=== PATIENT | male | born 1935 | race Caucasian/White ===

== ENCOUNTER 2017-03-08 11:12 | Emergency (ER) | payer MEDICARE, OTHER ==
[~2017-03-08] VITALS: Ht 177.8 cm; Wt 114.3 kg
--- NOTE | 2017-03-08 11:43 | PHYS DOC ---
General Chief Complaint: ABDOMINAL PAIN Stated Complaint: ABD PAIN Time Seen by MD: 11:13 Source: patient Exam Limitations: no limitations Problems: History of Present Illness Initial Comments Patient is a 81-year-old male who comes to the ED complaining of abdominal pain and dark stools. Patient states he presented to [facility] emergency department last week for the same symptoms. He says that they were so distracted trying to rule out a cardiac cause for his symptoms that they ignored his abdominal pain complaints. He says during his inpatient admission he was transferred "downtown" for "special x-rays of my heart." He says that while he was lying on his back with his arms up over his head during the procedure he began to vomit and had to stop and restart the next day. Ultimately they ruled out any cardiac cause and he says he was discharged home without any evaluation for his abdominal pain complaints. He began taking mag citrate and Colace earlier this week, he has finished but states he took for 3 days and had diarrhea. Initially he says his stools were "yellow, like a babies" but the past 2 days he says they have been black. He complains of intermittent abdominal pains she points to just above his umbilicus. He denies any nausea or vomiting he has been eating and drinking like normal and denies fever chills sweats or myalgias. He has extensive cardiac history but persistently denies any chest pain difficulty breathing arm or neck symptoms diaphoresis dizziness. He denies any recent antibiotic use and his symptoms are described as moderate. He tried to follow-up with Dr. Fowler today but was told he was out of the office after discussing his chief complaint he was directed to the emergency department. With this he hasn' t have any new activity intolerances or dyspnea on exertion no other symptoms. Patient takes [facility] staff has requested records from [facility] Timing/Duration: 1 week Severity: moderate Modifying Factors: worse with eating Associated Symptoms: other Allergies: Coded Allergies: Tetracyclines (Verified Allergy, Intermediate, 09/10/15) atorvastatin (Verified Allergy, Intermediate, 09/10/15) diphenhydramine (Verified Allergy, Intermediate, 09/10/15) erythromycin base (Verified Allergy, Intermediate, 09/10/15) ether (Verified Allergy, Intermediate, 09/10/15) Past Medical History Medical History: other (CHF, hypertension, coronary artery disease, atrial fibrillation, hyperlipidemia, COPD, gout, morbid obesity, diabetes, diabetic neuropathy, GERD, sleep apnea, chronic kidney disease stage III) Surgical History: other (CABG, coronary stent, rotator cuff, appendectomy, cholecystectomy, herniorrhaphy, anal sphincter repair, thyroid, cataract) Social History Smoker: quit greater than 1 year Alcohol: none Drugs: none Review of Systems Constitutional: denies chills, denies diaphoresis, denies fever, denies malaise Respiratory: denies cough, denies shortness of breath, denies wheezing Cardiovascular: denies chest pain, denies edema, denies palpitations, denies syncope Gastrointestinal: see HPI Genitourinary: denies dysuria, denies frequency, denies hematuria Musculoskeletal: denies back pain, denies joint swelling, denies neck pain Skin: denies change in color, denies lesions, denies lumps Psychiatric/Neurological: denies headache, denies numbness, denies paresthesia , denies weakness Physical Exam General Appearance: no apparent distress, obese Ear, Nose, Throat: hearing grossly normal, normal ENT inspection, normal pharynx Neck: non-tender, supple Respiratory: normal breath sounds, no respiratory distress Cardiovascular: normal peripheral pulses, regular rate, rhythm Gastrointestinal: soft (nondistended, mild epigastric tenderness without rebound or guarding, no masses bowel sounds are present and normal) Back: no CVA tenderness, no vertebral tenderness Extremities: non-tender, normal inspection, no pedal edema, no calf tenderness Neurologic/Psychiatric: 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 Interpreted by Dr Godinez. 1158: Digital rectal exam performed, hemoccult pending no complications. PATIENT: JS STOREY ACCOUNT: [id number] : 1935 LOCATION: ER AGE: 81 SEX: M EXAM STATUS: REG ER ORD. PHYSICIAN: ASHLEY GODINEZ DO REASON: abdominal pain, black stools PROCEDURE: ACUTE ABDOMEN SERIES Acute abdomen series with chest, 3 views, 03/08/2017: History: Abdominal pain with black stools The abdominal gas pattern is unremarkable without evidence of obstruction. No free air is seen in the abdomen. There is no evidence of organomegaly. Surgical clips in the right upper quadrant are compatible with a previous cholecystectomy. Moderate scattered arterial calcifications are present. There are surgical clips in the medial aspect of the left upper thigh. Mild scattered degenerative changes are present in the spine. There has been a previous median sternotomy. The heart is at the upper limits of normal in size. The pulmonary vascularity is normal. No pulmonary infiltrates are seen. There is no evidence of pleural fluid. IMPRESSION: No acute abdominal abnormality is detected. DICTATED AND SIGNED BY: JANEL RASHEED MD DATE: 03/08/17 1325 CC: GOPI FOWLER MD; ASHLEY GODINEZ DO ~ Lab called to notify me they were refusing Hemoccult specimen as they do not accept digital rectal exam specimens. 1417: Patient has decided he is done waiting and is requesting immediate discharge. He's been unable to produce a stool specimen so a lab requisition will be sent with him to bring a specimen back for evaluation. His hemoglobin is stable he's not had any bleeding or bowel movements at all throughout the several hours he's been here. He is also advised that his creatine kinase (325) needs to be rechecked on Saturday. His troponin was 0.04 he continues to deny any chest pain trouble breathing or other cardiac symptoms, he underwent extensive cardiac workup this past week which was negative. Departure Time of Disposition: 14:11 Disposition: HOME, SELF-CARE Diagnosis: diarrhea, elev CK, CKD Condition: STABLE Patient Instructions: Creatine Kinase (CK), Diet for Diarrhea, Adult Additional Instructions: Continue current medications, discontinue any medications for constipation ( colace, mag citrate). Aggressive hydration until follow-up with your doctor. A lab slip for stool studies has been given as you were unable to produce a specimen in the emergency department. Bring specimen in as soon as possible. Follow up with your doctor Saturday for stool results and to recheck your CK. Return to ED with new or changing symptoms. ASHLEY GODINEZ DO Mar 08, 2017 11:43
[2017-03-08 11:45] LABS: BASO # 0.1 x10^3/uL (0.0-0.2); BASO % 1 % (0-3); EOS # 0.2 x10^3/uL (0.0-0.7); EOS % 2 % (0-3); HEMATOCRIT 38.3 % (39.0-53.0); LYMPH # 1.2 x10^3/uL (1.0-4.8); LYMPH % 12 % (24-48); MEAN CORPUSCULAR HEMOGLOBIN 31 pg (25-35); MEAN CORPUSCULAR HGB CONC 34 g/dL (31-37); MEAN CORPUSCULAR VOLUME 91 fL (79-100); MONO # 0.8 x10^3/uL (0.0-1.1); MONO % 8 % (0-9); NEUT # 7.4 x10^3uL (1.8-7.7); NEUT % 77 % (31-73); PLATELET COUNT 177 x10^3/uL (140-400); RED CELL DISTRIBUTION WIDTH 15.7 % (11.5-14.5); WHITE BLOOD COUNT 9.7 x10^3/uL (4.0-11.0)
[2017-03-08 11:54] LABS: AMPHETAMINE/METHAMPHETAMINE NEG (NEG); BARBITURATES NEG (NEG); BENZODIAZEPINES NEG (NEG); CANNABINOIDS NEG (NEG); COCAINE NEG (NEG); METHADONE NEG (NEG); OPIATES NEG (NEG); PHENCYCLIDINE NEG (NEG)
[2017-03-08 11:59] LABS: ALBUMIN 3.6 g/dL (3.4-5.0); CREATININE 1.9 mg/dL (0.7-1.3); GFR 34.4; POTASSIUM 3.9 mmol/L (3.5-5.1); TOTAL BILIRUBIN 0.7 mg/dL (0.2-1.0); TOTAL PROTEIN 7.2 g/dL (6.4-8.2)
[2017-03-08 11:59] LABS: BACTERIA,URINE 0 /HPF (0-FEW); BILIRUBIN,URINE NEG (NEG); CLARITY,URINE CLEAR; COLOR,URINE YELLOW; GLUCOSE,URINE NEG (NEG); HYALINE CASTS, URINE MANY /HPF; NITRITE,URINE NEG (NEG); RBC,URINE RARE /HPF (0-2); SQUAMOUS EPITHELIAL CELL,UR OCC /LPF; UROBILINOGEN,URINE 0.2 mg/dL (0.2 mg/dL); WBC,URINE RARE /HPF (0-4)
--- NOTE | 2017-03-08 12:37 | RAD ---
Acute abdomen series with chest, 3 views, 03/08/2017: History: Abdominal pain with black stools The abdominal gas pattern is unremarkable without evidence of obstruction. No free air is seen in the abdomen. There is no evidence of organomegaly. Surgical clips in the right upper quadrant are compatible with a previous cholecystectomy. Moderate scattered arterial calcifications are present. There are surgical clips in the medial aspect of the left upper thigh. Mild scattered degenerative changes are present in the spine. There has been a previous median sternotomy. The heart is at the upper limits of normal in size. The pulmonary vascularity is normal. No pulmonary infiltrates are seen. There is no evidence of pleural fluid. IMPRESSION: No acute abdominal abnormality is detected.
[2017-03-08] MEDS ORDERED: LIDO:MAALOX 1:1 20 ML SINGLE DOSE PO ONE (12:40)
--- NOTE | 2017-03-08 12:53 | EKG ---
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
[2017-03-08 14:11] VITALS: BP 132/59
== END 2017-03-08 14:22 | disposition home or self-care (01) ==
LOC: ER 11:12
DX: R19.7 Diarrhea, unspecified (principal); R74.8 Abnormal levels of other serum enzymes; I25.810 Atherosclerosis of coronary artery bypass graft(s) without angina pectoris; I13.0 Hypertensive heart and chronic kidney disease with heart failure and stage 1 through stage 4 chronic kidney disease, or unspecified chronic kidney disease; E11.22 Type 2 diabetes mellitus with diabetic chronic kidney disease; N18.3 Chronic kidney disease, stage 3 (moderate); I50.9 Heart failure, unspecified; I48.91 Unspecified atrial fibrillation; E78.5 Hyperlipidemia, unspecified; J44.9 Chronic obstructive pulmonary disease, unspecified; E66.01 Morbid (severe) obesity due to excess calories; E11.40 Type 2 diabetes mellitus with diabetic neuropathy, unspecified; K21.9 Gastro-esophageal reflux disease without esophagitis; M10.9 Gout, unspecified; G47.30 Sleep apnea, unspecified; Z95.1 Presence of aortocoronary bypass graft; Z90.49 Acquired absence of other specified parts of digestive tract; Z87.891 Personal history of nicotine dependence; Z88.1 Allergy status to other antibiotic agents; Z88.8 Allergy status to other drugs, medicaments and biological substances
CPT/HCPCS: 36415; 74022; 80053; 80307; 81001; 82550; 83690; 84484; 85025; 85610; 85730; 93005; 99285-25; G0479

== ENCOUNTER → 2017-03-08 | Outpatient (CLI) | payer MEDICARE, OTHER ==
[~2017-03-08] MED LIST: ALBU18HF IH; ALLO300T PO; AMLO10TA2 PO; APIX5TAB3 PO; ASCO500T PO; ASPI-630 PO; ASPI81TA50 PO; ATEN100T PO; BENZ100C PO; BUDE0.5A11 IH; CARV25TA PO; CHERRY PO; CHOL100013 PO; CODIENE PO; DICL100G18 TP; DILT240C2 PO; FERR325T58 PO; FINA5TAB4 PO; FLUT16SP21 NS; FLUT1DIS3 INH; FLUT30CR TP; FOLI1TAB16 PO; FURO40TA4 PO; GABA-586 PO; GI cocktail PO; GUAI600T47 PO; HYDR-2869 PO; HYDR12.58 PO; INSU100I17 SQ; INSU100V8 SQ; IPRA0.2S5 IH; LOSA100T6 PO; METF500T4 PO; METO2.5T PO; METO25TA4 PO; MONT10TA9 PO; NITR0.4T22 SL; OMEP20CA9 PO; POTA10CA PO; POTA10TA10 PO; POTA20LI27 PO; PRAV80TA2 PO; PRED-220 PO; PROB500T PO; PROMETHAZINE PO; PROVENTIL INH; SAXA5TAB PO; SUCR1TAB PO; SUCR1TAB35 PO; SYMBICORT INH; Sodium chloride OU; TERA10CA3 PO; TIOT18CA IH; Uloric PO; ZOLP5TAB PO; [UNRECOGNIZED DRUG - CODE] OU; [UNRECOGNIZED DRUG - OTHER] PO
[2017-03-08 14:11] VITALS: BP 132/59
[2017-03-08 17:04] LABS: FECAL OB PT NEGATIVE (NEG)
== END | disposition home or self-care (01) ==
LOC: LAB 15:38
PROVIDERS: ATTEND Neuromusculoskeletal Medicine & OMM
DX: K92.1 Melena (principal)
CPT/HCPCS: 82274; 87045

== ENCOUNTER 2020-08-28 06:27 | Inpatient (IN) | payer MEDICARE, OTHER ==
[~2020-08-28] VITALS: Ht 177.8 cm; Wt 115.0 kg
[~2020-08-28 06:27] MED LIST changes: -ALBU18HF IH; +ALBU2.5V8 IH; +AMLO-187 PO; -AMLO10TA2 PO; -ASCO500T PO; +ASCO500T53 PO; -FLUT30CR TP; +FLUT30CR2 TP; +LOSA100T14 PO; -LOSA100T6 PO; +METF500T16 PO; -METF500T4 PO; +MONT10TA80 PO; -MONT10TA9 PO; +OMEP20CA16 PO; -OMEP20CA9 PO
--- NOTE | 2020-08-28 06:51 | PHYS DOC ---
Past History Past Medical History: A-Fib, CAD, CHF, COPD, Diabetes, GERD, High Cholesterol, Heart Disease, Hypertension, Other Past Surgical History: Appendectomy, Cholecystectomy, Coronary Bypass Surgery, Other Smoking: Quit Greater Than 1 Year Alcohol Use: None Drug Use: None Adult General HPI HPI Patient is a 85-year-old male who presents via POV for altered mental status. Patient presents with daughter whom he lives with. Daughter is primary historian, states she lives with father who is typically independent and handles most activities of daily living independently. Reports that yesterday patient was normal and at baseline, they went to the local casino and after coming home approximately 2100 hrs. patient's mentation deviated from baseline without any known trauma, ingestion or inciting event. Nothing known makes better or worse. Daughter states "he just has not been acting like himself... He went to go outside with just shorts on earlier this morning... Told me he needed to go to the bathroom in the middle of the night and walked to the garage". Daughter denies any sick contacts, both daughter and patient have been vaccinated for Covid, there has been no concerning ingestion, illicit drug abuse or alcohol us e. Daughter does admit patient was recently started on baclofen approximately 72 hours ago by PCP Review of Systems Review of Systems Fourteen body systems of review of systems have been reviewed. See HPI for pertinent positives and negative responses, other veliz all other systems are negative, non-pertinent or non-contributory Allergies Allergies Allergies Coded Allergies Type Severity Reaction Last Updated Verified Tetracyclines Allergy Intermediate 09/10/15 Yes atorvastatin Allergy Intermediate 09/10/15 Yes diphenhydramine Allergy Intermediate 09/10/15 Yes erythromycin base Allergy Intermediate 09/10/15 Yes ether Allergy Intermediate 09/10/15 Yes Physical Exam Physical Exam Constitutional: Pt is oriented to person, place, and time. Pt appears well-developed and well- nourished. Grossly slowed psychomotor retardation HEENT: Head: Normocephalic and atraumatic. External ears unremarkable, no hemotympanum Conjunctivae and EOM are normal. Pupils are equal, round, and reactive to light. Oropharynx is clear and dry No hematomas or lacerations or abrasions to face or scalp OP clear, no blood, no malocclusion, dentition intact Nares clear, no nasal septal hematoma Midface stable Neck: C-spine midline nontender, no step-offs Cardiovascular: Normal rate, irregular rhythm. Pulmonary/Chest: Effort normal and breath sounds normal. No respiratory distress. No wheezes. CTA bilaterally Abdominal: Soft. Bowel sounds are normal. Pt exhibits no distension. There is no tenderness. Musculoskeletal: No bony tenderness to extremities, no deformities, full ROM extremities Chest wall stable Pelvis stable and non-tender No vertebral TTP and spine without stepoffs Neurological: Pt is alert and oriented to person, place, and time. Moving all extremities willfully, able to wiggle all fingers and toes Patient ambulatory back to ER room without assistance but gait was unsteady, this is at baseline per daughter who accompanied patient Alert and oriented x 3 Motor strength intact to all 4 extremities Sensation grossly intact Skin: Skin is warm and dry. No abrasions, no lacerations Psychiatric: Flat affect Current Patient Data Vital Signs Vital Signs Date Time Temp Pulse Resp B/P (MAP) Pulse Ox O2 Delivery O2 Flow Rate FiO2 08/28/20 06:56 97.3 65 16 165/68 (100) Room Air 94.0 Lab Results Laboratory Tests Test 08/28/20 06:42 08/28/20 07:11 08/28/20 08:24 Glucose (Fingerstick) 246 mg/dL White Blood Count 10.6 x10^3/uL Red Blood Count 4.27 x10^6/uL Hemoglobin 13.0 g/dL Hematocrit 39.9 % Mean Corpuscular Volume 93 fL Mean Corpuscular Hemoglobin 30 pg Mean Corpuscular Hemoglobin Concent 33 g/dL Red Cell Distribution Width 15.2 % Platelet Count 171 x10^3/uL Neutrophils (%) (Auto) 84 % Lymphocytes (%) (Auto) 9 % Monocytes (%) (Auto) 6 % Eosinophils (%) (Auto) 0 % Basophils (%) (Auto) 1 % Neutrophils # (Auto) 8.9 x10^3uL Lymphocytes # (Auto) 0.9 x10^3/uL Monocytes # (Auto) 0.6 x10^3/uL Eosinophils # (Auto) 0.0 x10^3/uL Basophils # (Auto) 0.1 x10^3/uL Sodium Level 147 mmol/L Potassium Level 3.9 mmol/L Chloride Level 110 mmol/L Carbon Dioxide Level 28 mmol/L Anion Gap 9 Blood Urea Nitrogen 40 mg/dL Creatinine 2.1 mg/dL Estimated GFR (Cockcroft-Gault) 30.3 Glucose Level 263 mg/dL Calcium Level 9.1 mg/dL Troponin I Quantitative < 0.017 ng/mL Urine Collection Type Unknown Urine Color Yellow Urine Clarity Clear Urine pH 5.5 Urine Specific [place] >=1.030 Urine Protein >100 mg/dl Urine Glucose (UA) Neg mg/dL Urine Ketones (Stick) Neg mg/dL Urine Blood Trace Urine Nitrite Neg Urine Bilirubin Neg Urine Urobilinogen Dipstick 0.2 mg/dL Urine Leukocyte Esterase Neg Urine RBC Occ /HPF Urine WBC Occ /HPF Urine Squamous Epithelial Cells Few /LPF Urine Bacteria 0 /HPF Urine Hyaline Casts Few /HPF Urine Mucus Slight /LPF Current Medications Medications (Trade) Dose Ordered Sig/Cara Route PRN Reason Start Time Stop Time Status Last Admin Dose Admin Ondansetron HCl (Zofran) 4 mg STK-MED ONCE .ROUTE 08/28/20 08:46 08/28/20 08:46 DC Ondansetron HCl (Zofran) 4 mg 1X ONCE IVP 08/28/20 09:00 08/28/20 09:01 DC 08/28/20 08:50 Ceftriaxone Sodium 1 gm/ Sodium Chloride 50 ml @ 100 mls/hr 1X ONCE IV 08/28/20 10:15 08/28/20 10:44 Azithromycin 500 mg/Sodium Chloride 250 ml @ 250 mls/hr 1X ONCE IV 08/28/20 10:15 08/28/20 11:14 EKG EKG EKG ordered and interpreted by myself at 0709 hrs. as atrial fibrillation with ventricular rate at 86 bpm, QTC 467 otherwise grossly unremarkable intervals, no axis deviation, no acute ischemic findings, no STEMI Radiology/Procedures Radiology/Procedures PROCEDURE: PORTABLE CHEST 1V Chest AP portable at 0646: Reason for examination: Weakness. Comparison is made to previous chest dated 03/08/2017. Postop changes are seen in the sternum and mediastinum. Heart size is normal. Mediastinum is otherwise unremarkable. Lung hernandez show some mild hazy infiltrates at the lung bases bilaterally. No pleural effusions or pneumothorax are seen. No acute bony abnormalities are present. IMPRESSION: Mild hazy infiltrates at the lung bases bilaterally. Electronically signed by: Kathy German MD (08/28/2020 7:07 AM) [facility] /////////////////////////////////////////////////////////////// PROCEDURE: CT HEAD WO CONTRAST EXAM: Head CT without contrast. HISTORY: Confusion. TECHNIQUE: Computed tomographic images of the head were obtained without contrast. *One or more of the following individualized dose reduction techniques were utilized for this examination: 1. Automated exposure control. 2. Adjustment of the mA and/or kV according to patient size. 3. Use of iterative reconstruction technique. COMPARISON: None. FINDINGS: There is no acute or subacute extra-axial or intraparenchymal hemorrhage. There is no mass effect or midline shift. There is no hydrocephalus. There are areas of decreased attenuation within the cerebral white matter, nonspecific and likely related to chronic small vessel disease. There is cerebral atrophy with compensatory enlargement of the ventricles. The visualized portions of the orbits, paranasal sinuses and mastoid air cells are unremarkable. No suspicious calvarial lesion is seen. IMPRESSION: 1. No acute intracranial finding. Note is made that MRI is more sensitive for acute infarction. 2. Bilateral cerebral white changes, likely due to chronic small vessel disease. 3. Cerebral atrophy. Electronically signed by: Nicolette Marvin MD (08/28/2020 7:31 AM) [id number] Heart Score C/O Chest Pain: No HEART Score for Chest Pain: HEART Score for Chest Pain Response (Comments) Value History Slighlty/Non-Suspicious 0 ECG Nonspecific Repolarizatio 1 Age > 65 2 Risk Factors >3 Risk Factors or Hx CAD 2 Troponin < Normal Limit 0 Total 5 Risk Factors: Risk Factors: DM, Current or recent (<one month) smoker, HTN, HLP, family history of CAD, obesity. Risk Scores: Risk Factors: DM, Current or recent (<one month) smoker, HTN, HLP, family history of CAD, obesity. Course & Med Decision Making Course & Med Decision Making Afebrile and hemodynamically stable patient with history and physical exam concerning for acute delirium Comprehensive ER work-up pursued and disclosed at length to patient and daughter. Discussed most concerning findings for suspect bilateral lung base pneumonia as source of patient's delirium. As such, IV antibiotics were started while in ER. Despite ER intervention, patient continued to be delirious having visual hallucinations throughout ER visit. He is unsafe for discharge home back with daughter. Joint decision between myself and daughter to admit to our hospital I discussed case with on-call hospitalist who ultimately admitted patient under his care. I discussed plan of care for admission with daughter who again was amenable. CODE STATUS was discussed with daughter, she states prior DNR has been signed and will be honored this admission All questions and concerns addressed prior to ER transport to [facility] for admission Dragon Disclaimer Dragon Disclaimer This electronic medical record was generated, in whole or in part, using a voice recognition dictation system. Departure Departure: Impression: Primary Impression: Bilateral pneumonia Additional Impressions: Acute delirium Afib CHF (congestive heart failure) Disposition: 09 ADMITTED INPT THIS HOSP Admitting Physician: Chin Chapman Condition: STABLE Referrals: [facility]ARCA (PCP) Problem Qualifiers ROBERT FUNES DO Aug 28, 2020 06:51
--- NOTE | 2020-08-28 07:10 | RAD ---
Chest AP portable at 0646: Reason for examination: Weakness. Comparison is made to previous chest dated 03/08/2017. Postop changes are seen in the sternum and mediastinum. Heart size is normal. Mediastinum is otherwis e unremarkable. Lung hernandez show some mild hazy infiltrates at the lung bases bilaterally. No pleural effusions or pneumothorax are seen. No acute bony abnormalities are present. IMPRESSION: Mild hazy infiltrates at the lung bases bilaterally. Electronically signed by: Kathy Lopez MD (08/28/2020 7:07 AM) RACHEL
--- NOTE | 2020-08-28 07:33 | RAD ---
EXAM: Head CT without contrast. HISTORY: Confusion. TECHNIQUE: Computed tomographic images of the head were obtained without contrast. *One or more of the following individualized dose reduction techniques were utilized for this examina tion: 1. Automated exposure control. 2. Adjustment of the mA and/or kV according to patient size. 3. Use of iterative reconstruction technique. COMPARISON: None. FINDINGS: There is no acute or subacute extra-axial or intraparenchymal hemorrhage. There is no mass effect or midline shift. There is no hydrocephalus. There are areas of decreased attenuation within the cerebral white matter, nonspecific and likely rel ated to chronic small vessel disease. There is cerebral atrophy with compensatory enlargement of the ventricles. The visualized portions of the orbits, paranasal sinuses and mastoid air cells are unremarkable. No s uspicious calvarial lesion is seen. IMPRESSION: 1. No acute intracranial finding. Note is made that MRI is more sensitive for acute infarction. 2. Bilateral cerebral white changes, likely due to chronic small vessel disease. 3. Cerebral atrophy. Electronically signed by: Nicolette Marvin MD (08/28/2020 7:31 AM) [id number]
[2020-08-28 07:41] LABS: BASO # 0.1 x10^3/uL (0.0-0.2); BASO % 1 % (0-3); EOS % 0 % (0-3); HEMATOCRIT 39.9 % (39.0-53.0); LYMPH # 0.9 x10^3/uL (1.0-4.8); LYMPH % 9 % (24-48); MEAN CORPUSCULAR HEMOGLOBIN 30 pg (25-35); MEAN CORPUSCULAR HGB CONC 33 g/dL (31-37); MEAN CORPUSCULAR VOLUME 93 fL (79-100); MONO # 0.6 x10^3/uL (0.0-1.1); MONO % 6 % (0-9); NEUT # 8.9 x10^3uL (1.8-7.7); NEUT % 84 % (31-73); PLATELET COUNT 171 x10^3/uL (140-400); RED BLOOD COUNT 4.27 x10^6/uL (4.30-5.70); RED CELL DISTRIBUTION WIDTH 15.2 % (11.5-14.5); WHITE BLOOD COUNT 10.6 x10^3/uL (4.0-11.0)
--- NOTE | 2020-08-28 07:42 | EKG ---
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
[2020-08-28 07:51] LABS: CALCIUM 9.1 mg/dL (8.5-10.1); CREATININE 2.1 mg/dL (0.7-1.3); GFR 30.3; POTASSIUM 3.9 mmol/L (3.5-5.1)
[2020-08-28] MEDS ORDERED: ONDANSETRON PF 4 MG/2 ML VIAL. ONE (08:46)
[2020-08-28] MEDS ORDERED: ONDANSETRON PF 4 MG/2 ML VIAL. IVP ONE ×2 (09:00→11:00)
[2020-08-28 09:28] LABS: BACTERIA,URINE 0 /HPF (0-FEW); BILIRUBIN,URINE NEG (NEG); CLARITY,URINE CLEAR; COLOR,URINE YELLOW; GLUCOSE,URINE NEG (NEG); HYALINE CASTS, URINE FEW /HPF; NITRITE,URINE NEG (NEG); RBC,URINE OCC /HPF (0-2); UROBILINOGEN,URINE 0.2 mg/dL (0.2 mg/dL); WBC,URINE OCC /HPF (0-4)
[2020-08-28 09:29] LABS: SQUAMOUS EPITHELIAL CELL,UR FEW /LPF
[2020-08-28] MEDS ORDERED: AZITHROMYCIN 500 MG in IV NORMAL SALINE 250ML 250 ML IV ONE (10:15)
[2020-08-28] MEDS ORDERED: cefTRIAXone SODIUM 1 GM VIAL ONE (10:30)
[2020-08-28] MEDS ORDERED: AZITHROMYCIN 500 MG VIAL. IV ONE (10:30)
[2020-08-28] MEDS ORDERED: ACETAMINOPHEN 325 MG TABLET PO PRN (10:30)
[2020-08-28] MEDS ORDERED: IV NORMAL SALINE 250ML 250 ML ONE (10:30)
[2020-08-28] MEDS ORDERED: IV NORMAL SALINE 50ML 50 ML ONE (10:30)
[2020-08-28 12:44] VITALS: BP 201/126
[2020-08-28 13:00] VITALS: BP 144/92
[2020-08-28 13:23] VITALS: BP 152/95
[2020-08-28 14:00] VITALS: BP 135/81
[2020-08-28] MEDS ORDERED: HYDR-2868 PO ×2 (16:07)
[2020-08-28] MEDS ORDERED: PANT40TA6 PO (16:07)
[2020-08-28] MEDS ORDERED: NITR0.4T22 SL (16:07)
[2020-08-28] MEDS ORDERED: EZET10TA20 PO (16:07)
[2020-08-28] MEDS ORDERED: APIX2.5T PO (16:07)
[2020-08-28] MEDS ORDERED: DILT180C86 PO (16:07)
[2020-08-28] MEDS ORDERED: TERA10CA3 PO (16:27)
[2020-08-28] MEDS ORDERED: TORS20TA2 PO (16:27)
[2020-08-28] MEDS ORDERED: THYR30TA PO (16:27)
[2020-08-28] MEDS ORDERED: METO-247 PO (16:27)
[2020-08-28] MEDS ORDERED: METO2.5T PO (16:27)
[2020-08-28] MEDS ORDERED: DICL100G18 TP (16:28)
[2020-08-28] MEDS ORDERED: DOCU-109 PO (16:28)
[2020-08-28] MEDS ORDERED: ALBU1.25 NEB (16:28)
[2020-08-28] MEDS ORDERED: FERR325T14 PO (16:28)
[2020-08-28] MEDS ORDERED: PRAV80TA2 PO (16:28)
[2020-08-28] MEDS ORDERED: FLUO60SO TP (16:28)
[2020-08-28] MEDS ORDERED: CARB15DR3 OP (16:28)
[2020-08-28] MEDS ORDERED: FINA5TAB4 PO (16:28)
[2020-08-28] MEDS ORDERED: FEBU80TA2 PO (16:28)
[2020-08-28] MEDS ORDERED: CHOL500050 PO (16:28)
[2020-08-28] MEDS ORDERED: INSU100I13 SQ (16:28)
[2020-08-28] MEDS ORDERED: FLUT50DI IH (16:28)
[2020-08-28] MEDS ORDERED: PROB500T PO (16:28)
[2020-08-28] MEDS ORDERED: GUAI600T47 PO (16:28)
[2020-08-28] MEDS ORDERED: FOLI0.8C PO (16:28)
[2020-08-28] MEDS ORDERED: ALBU6.7H8 IH (16:28)
[2020-08-28] MEDS ORDERED: KETO5DRO89 OP (16:28)
[2020-08-28] MEDS ORDERED: METR70GE2 VG (16:28)
[2020-08-28] MEDS ORDERED: INSU100V31 SQ (16:28)
[2020-08-28] MEDS ORDERED: MONT10TA80 PO (16:28)
[2020-08-28 16:32] LABS: BGAS PH 7.39 (7.35-7.46)
--- NOTE | 2020-08-28 16:44 | HP ---
ADMIT DATE: 08/28/2020 HISTORY OF PRESENT ILLNESS: The patient is an 85-year-old male patient who apparently was brought by his daughter to the Emergency Room with altered mental status. Apparently, the daughter was the primary historian, stating that she lives with her father who is typically independent and has most of his activities of daily living independently. She reports that yesterday the patient was normal and at baseline. They went to the local [facility] and after coming home approximately at 2100, his mentation has deviated dramatically from baseline without any known trauma, ingestion or inciting events. Nothing known makes better or worse. She stated that he just had not been acting like himself. He went to go outside with just shorts on earlier this morning, told he needed to go to the bathroom in the middle of the night and walked to the garage. Daughter denies any sick contact. Both daughter and the patient had been vaccinated for COVID. There has been no concerning ingestion, illicit drug use or alcohol intake. The daughter does admit that the patient was recently started on baclofen approximately 72 hours ago by his primary care physician. He was extensively investigated in the Emergency Room and has had lab work as well as imaging studies. His white cell count was normal. His chemistry showed that he has chronic kidney disease and slightly elevated sodium at 147. The urinalysis was unremarkable. The CT scan of the head showed no acute intracranial finding. Note is made that MRI is more sensitive for acute infarction, bilateral cerebral white changes, likely due to chronic small vessel disease and his chest x-ray showed mild hazy infiltrate at the lung bases bilaterally. The patient was admitted with altered mental status and probably community-acquired pneumonia. He was also found to have AFib and was admitted with acute community-acquired pneumonia, acute delirium, atrial fibrillation and congestive heart failure. PAST MEDICAL HISTORY: Significant for heart failure with preserved ejection fraction with diastolic dysfunction, hypertension, coronary artery disease, permanent atrial fibrillation, hyperlipidemia, COPD, gout, morbid obesity, diabetes with neuropathy, gastroesophageal reflux disease, obstructive sleep apnea and chronic kidney disease stage 3. PAST SURGICAL HISTORY: Significant for coronary artery bypass graft surgery, angioplasty with stent deployment, rotator cuff repair in 2011, appendectomy, cholecystectomy, hernia repair, anal sphincter repair, thyroid surgery and cataract extraction. ALLERGIES: He is allergic to LIPITOR, ERYTHROMYCIN, ETHER, LOVASTATIN AND TETRACYCLINE. FAMILY HISTORY: Significant for premature coronary artery disease. SOCIAL HISTORY: The patient lives with his daughter. He does not smoke. He quit actually in 1994. Does not drink alcohol. REVIEW OF SYSTEMS: As per history of present illness. MEDICATIONS: He is currently on following medications: He is on apixaban 5 mg twice a day, pravastatin 80 mg at bedtime, nitroglycerin 0.4 mg sublingually every 5 minutes x 3, terazosin 10 mg at bedtime, metoprolol tartrate 50 mg twice a day, metoprolol tartrate 75 mg twice a day, diltiazem 240 mg, he takes 2 capsules daily. He is on aspirin 81 mg once a day, diclofenac sodium 1 gram topically 4 times a day, gabapentin 300 mg 3 times a day, Ambien 5 mg at bedtime. He is on potassium chloride 10 mEq daily, furosemide 60 mg at noon, furosemide 40 mg twice a day before breakfast and lunch, metolazone 5 mg daily, metolazone 2.5 mg b.i.d., probenecid 500 mg daily, benzonatate 100 mg 3 times a day, Mucinex 600 mg twice a day, fluticasone propionate for Flonase 2 sprays to each nostril once a day, sodium chloride or saline nasal spray one spray to each nostril at bedtime, sucralfate 1 g 4 times a day, omeprazole 20 mg once a day, prednisone 10 mg once a day and Onglyza 2.5 mg daily. He is on NovoLog FlexPen 14 units subcutaneously before meals and Lantus insulin 80 units at bedtime, vitamin B12 1 mg daily, cholecalciferol (vitamin D3) 1000 units once a day, finasteride 5 mg once a day, snow concentrate 2 tablets daily. He is on Proventil 2 puffs twice a day, Symbicort 160/4.5 two puffs twice a day, and he is also on Uloric 80 mg at bedtime for gout. PHYSICAL EXAMINATION: GENERAL: On arrival to the Emergency Room, the patient looked well and was clearly in no apparent respiratory distress. No pallor, jaundice, cyanosis or thyromegaly. No jugular venous distention. No lower limb edema. VITAL SIGNS: His heart rate was 65, blood pressure was 165/68, temperature was 97.3, respiratory rate was 16, and oxygen saturation was 94%. HEAD, EYES, EARS, NOSE AND THROAT: Showed normocephalic, atraumatic. NECK: Supple. HEART: Showed normal first and second heart sounds. No gallop, rub or murmur. CHEST: Clear to auscultation. No crepitation or rhonchi. ABDOMEN: Distended, soft, nontender. NEUROLOGIC: He was apparently more confused. He apparently was walking to the Emergency Room, but apparently has been very confused with markedly delayed responses. He apparently was extremely weak and took 3 persons to get him back to the bed. LABORATORY DATA: His lab work showed that his white cell count was 10,600, hemoglobin 13, hematocrit 39, MCV 93, and platelet count of 171,000. His chemistry showed a serum sodium 147, potassium 3.9, chloride 110, bicarbonate 28, anion gap of 9, BUN 40, creatinine 2.1, estimated GFR was 30 mL per minute, his glucose 263, calcium was 9.1. First troponin was less than 0.017. His urinalysis is essentially unremarkable. His chest x-ray showed that the patient has mild hazy infiltrate at the lung bases bilaterally. Head CT showed the patient has no acute intracranial finding. Note is made that MRI is more sensitive for acute infarction, bilateral cerebral white changes, likely due to chronic small vessel disease and cerebral atrophy. ASSESSMENT AND PLAN: In summary, this is an 85-year-old male patient who was admitted with altered mental status with community-acquired pneumonia, atrial fibrillation and congestive heart failure. My plan is to reconcile all his medication and do 2 more sets of cardiac enzymes. We will consult Dr. Recinos for evaluation and decide on further management accordingly. TATYANA PERALTA MD DR: DONNA/tania JOB#: [id number] / [id number]
[2020-08-28 17:01] LABS: CALCIUM 8.7 mg/dL (8.5-10.1); CREATININE 1.8 mg/dL (0.7-1.3); GFR 36.2; POTASSIUM 4.5 mmol/L (3.5-5.1)
[2020-08-28] MEDS ORDERED: NITROGLYCERIN SUBLINGUAL 0.4 MG BOTTLE OF 25. SL PRN (17:15)
[2020-08-28] MEDS ORDERED: hydrALAZINE 25 MG TABLET PO PRN (17:15)
[2020-08-28] MEDS ORDERED: ALBUTEROL SULFATE 8GM INHALER. IH PRN (17:15)
[2020-08-28] MEDS ORDERED: NON FORMULARY ITEM (Albuterol Sulfate (Albuterol Sulfate Neb Soln) 2.5 MG) NEB SCH (17:15)
[2020-08-28] MEDS ORDERED: ANTI-COAG MONITOR BY PHARMACY. MC PRN (17:45)
[2020-08-28 18:00] VITALS: BP 183/100
[2020-08-28] MEDS ORDERED: DEXTROSE 50% 25 GM / 50ML DISP.SYRIN. IV PRN (18:00)
[2020-08-28] MEDS: METOPROLOL SUCC 24HR ER 50 MG TAB.ER.24H. PO SCH (19:20)
[2020-08-28] MEDS ORDERED: clonazePAM 0.5 MG TABLET PO PRN (20:00)
[2020-08-28] MEDS: APIXABAN 2.5 MG TABLET PO SCH (20:37)
[2020-08-28] MEDS: MONTELUKAST 10 MG TABLET. PO SCH (20:37)
[2020-08-28] MEDS: SUCRALFATE 1 GM TABLET. PO SCH (20:37)
[2020-08-28] MEDS: hydrALAZINE 25 MG TABLET PO SCH (20:37)
[2020-08-28] MEDS: levETIRAcetam 500 MG TABLET PO SCH (20:38)
[2020-08-28] MEDS: TORSEMIDE 20 MG TABLET. PO SCH (20:38)
[2020-08-28] MEDS ORDERED: METRONIDAZOLE VG SCH (21:00)
[2020-08-28] MEDS ORDERED: INSULIN GLARGINE SYRINGE. SQ SCH (21:00)
[2020-08-28] MEDS: DICLOFENAC SODIUM 1% TOPICAL GEL 100GM TUBE. TP SCH (21:00)
[2020-08-28] MEDS ORDERED: NON FORMULARY ITEM (Insulin Aspart (Novolog) 1 UNIT) SQ SCH (21:00)
[2020-08-28] MEDS: POLYVINYL ALCOHOL 1.4% OPHTH SOLUTION 15ML BOTTLE. OD SCH (21:00)
[2020-08-28 21:05] VITALS: BP 173/93
[2020-08-28] MEDS: INSULIN GLARGINE SYRINGE. SQ SCH (21:21)
--- NOTE | 2020-08-29 03:06 | CONS ---
DATE OF CONSULTATION: 08/28/2020 NEUROLOGY CONSULTATION REFERRING PHYSICIAN: Ari Garner MD REASON FOR CONSULTATION: Rule out stroke. HISTORY OF PRESENT ILLNESS: This is an 85-year-old right-handed male who was admitted through Emergency Room after he presented with chief complaint of acute onset of mental status and generalized weakness. The patient was seen by his primary care physician who ____ baclofen 3 days prior to this admission. According to his daughter, the patient went to [facility] and after coming home, he started having more jerking movements of the upper extremities along with acute mental status changes. The patient became confused and disoriented with late response. The patient and his daughter had been vaccinated for COVID. Currently, he denies headaches, visual disturbances, nausea, vomiting, chest pain, shortness of breath or palpitation. The patient denies any recent changes in his medications except for baclofen. He denies any recent fall or head injuries. Initial nonenhanced head CT scan revealed evidence of chronic small vessel ischemic changes along with atrophy. It was reported the patient demonstrated right-sided weakness and able to walk without assistance. Chest x-ray revealed evidence of bilateral infiltrates and possible pneumonia. On arrival to Emergency Room, his blood pressure was elevated. According to his daughter, the patient has been having progressive jerking movements of the upper extremities, noticed all the time for the last 6 months, either he was awake or he is in sleep. PAST MEDICAL HISTORY: Significant for coronary artery disease, hypertension, hyperlipidemia, diabetes mellitus, obesity, atrial fibrillations, peripheral neuropathy in the lower extremities, gastroesophageal reflux disease, obstructive sleep apnea, but he does not use any CPAP or BiPAP and chronic kidney disease. PAST SURGICAL HISTORY: Positive for coronary artery bypass graft, coronary artery stent placement, rotator cuff repair in 2011, appendectomy, anal sphincter repair, thyroid surgery, cataract extraction and cholecystectomy. FAMILY HISTORY: Strongly positive for coronary artery disease. SOCIAL HISTORY: The patient lives with his at home. He denies smoking, alcohol drinking, or illicit drug use. CURRENT HOME MEDICATIONS: [place] thyroid, terazosin, pravastatin, insulin Lantus and insulin Humalog, folic acid, Flonase nasal spray, Benemid, Protonix, Zaroxolyn, Ketotifen eyedrops, Proscar, Zetia, vitamin D3, ferrous sulfate, torsemide, sucralfate, Singulair, hydralazine, metoprolol, diltiazem, albuterol inhalers and Eliquis, the patient was started on antibiotics, Rocephin and azithromycin for possible community-acquired pneumonia. ALLERGIES: TETRACYCLINE, LIPITOR, DIPHENHYDRAMINE, ERYTHROMYCIN BASE. REVIEW OF SYSTEMS: A 10-point review of system was performed as mentioned above in history of present illness. PHYSICAL EXAMINATION: GENERAL: Obese male, not in acute distress. He weighs 114.8 kilos. VITAL SIGNS: Blood pressure 187/106, respiratory rate 15, pulse is 180 and regular, oxygen saturation 95% on 1 liter by nasal cannula and afebrile. HEENT: Normocephalic, atraumatic, otherwise unremarkable. NECK: Supple. Negative for carotid bruit, lymphadenopathy or thyromegaly. LUNGS: With diminished breath sounds in the bases bilaterally. CARDIOVASCULAR: Regular rhythm, normal S1, S2. No murmur. ABDOMEN: Soft. Bowel sounds positive. EXTREMITIES: Negative for cyanosis, clubbing or edema. NEUROLOGICAL EXAMINATION: MENTAL STATUS: The patient is awake, but disoriented to place and time. Speech is late, but coherent. There is no language dysfunction. Memory, judgment, and abstract thinking are fair. The patient denies hallucination or delusion. CRANIAL NERVES: Visual hernandez are full. The pupils are reactive to light and accommodation. The extraocular movements are intact. There is no nystagmus. There is no facial motor or sensory deficit. Hearing is intact bilaterally. The palate is elevated symmetrically. Sternocleidomastoid muscles are powerful bilaterally. The patient shrugs his shoulders symmetrically, protrudes his tongue in the midline without fasciculation or atrophy. MOTOR: No focal muscle bulk was seen. The tone is normal. The strength is 4/5 throughout. The patient had jerking movement of the upper extremities of myoclonic type. SENSORY EXAMINATION: Revealed diminished pinprick and light touch senses in patchy distributions in distal lower extremities. Deep tendon reflexes were symmetric and hypoactive with absent Achilles responses. Gait not tested. LABORATORY DATA: CBC revealed white blood cells of 10.6 thousand, hemoglobin 13, hematocrit 39.9, platelet count 171,000. Chemistry revealed sodium of 146, potassium 4.5, chloride 111, CO2 of 27, BUN 39, creatinine 1.8, glucose 275, calcium 8.7. Urinalysis is negative for urinary tract infections. IMPRESSION: 1. Acute encephalopathy, probably multifactorial including metabolic derangement as chronic kidney disease, hyperglycemia and pneumonia. 2. Multiple medical problems including coronary artery disease, atrial fibrillations, hypertension, hyperlipidemia, diabetes mellitus, gastroesophageal reflux disease, obstructive sleep apnea, obesity, hypothyroidism and possible peripheral neuropathy. 3. Intermittent jerking movements of the upper extremities of myoclonic type of unknown etiology at rest and when using his upper extremities. 4. Hyponatremia. 5. Chronic kidney disease. RECOMMENDATION: 1. Continue with current management initiated by Dr. Chapman and home medications. 2. We will start the patient on Keppra 500 mg twice daily for myoclonic movements of the upper extremities, small dose of clonazepam may added at bedtime for continuous jerking movements. 3. Physical therapy evaluation. 4. Electroencephalogram. 5. The patient should have EMG/NCS of the lower extremities to rule out peripheral neuropathy and that can be done on an outpatient basis. M Amy ANAYA MD DR: ALLISON/tania JOB#: [id number] / [id number]
[2020-08-29 06:39] LABS: RED BLOOD COUNT 3.98 x10^6/uL (4.30-5.70); RED CELL DISTRIBUTION WIDTH 15.5 % (11.5-14.5); WHITE BLOOD COUNT 9.2 x10^3/uL (4.0-11.0)
[2020-08-29 06:55] LABS: ALBUMIN 2.9 g/dL (3.4-5.0); CALCIUM 8.6 mg/dL (8.5-10.1); CREATININE 1.8 mg/dL (0.7-1.3); GFR 36.2; TOTAL BILIRUBIN 0.4 mg/dL (0.2-1.0); TOTAL PROTEIN 5.9 g/dL (6.4-8.2)
[2020-08-29 07:00] VITALS: BP 163/84
[2020-08-29] MEDS ORDERED: metOLazone 2.5 MG TABLET PO SCH (07:30)
[2020-08-29 08:00] VITALS: BP 141/59
[2020-08-29] MEDS: INSULIN LISPRO 300 UNITS/3 ML VIAL. SQ SCH ×6 (08:00→18:40)
[2020-08-29] MEDS: POLYVINYL ALCOHOL 1.4% OPHTH SOLUTION 15ML BOTTLE. OD SCH ×3 (09:00→20:36)
[2020-08-29] MEDS ORDERED: FLUTICASONE 50MCG/NASAL SPRAY 16GM BOTTLE. NS PRN (09:00)
[2020-08-29] MEDS: DICLOFENAC SODIUM 1% TOPICAL GEL 100GM TUBE. TP SCH ×4 (09:00→20:35)
[2020-08-29] MEDS: NON FORMULARY ITEM (Pravastatin Sodium 1 TAB) PO SCH (09:00)
[2020-08-29] MEDS: INSULIN GLARGINE SYRINGE. SQ SCH ×2 (09:00→20:35)
[2020-08-29] MEDS: PROBENECID 500 MG TABLET PO SCH (09:00)
[2020-08-29] MEDS ORDERED: predniSONE 10 MG TABLET PO SCH (09:00)
[2020-08-29] MEDS: KETOTIFEN FUMARATE 0.025% OPHT SOLUTION BOTTLE. OU SCH ×2 (09:00→20:36)
[2020-08-29] MEDS: HYDROCORTISONE 1% TOPICAL CREAM 30GM TUBE. TP SCH (09:00)
[2020-08-29 09:25] VITALS: BP 158/81
[2020-08-29] MEDS: SUCRALFATE 1 GM TABLET. PO SCH ×4 (10:04→20:35)
[2020-08-29] MEDS: levETIRAcetam 500 MG TABLET PO SCH ×2 (11:09→20:35)
[2020-08-29] MEDS: EZETIMIBE 10 MG TABLET PO SCH (11:09)
[2020-08-29] MEDS: PANTOPRAZOLE 40 MG TABLET. PO SCH (11:09)
[2020-08-29] MEDS: metOLazone 2.5 MG TABLET PO SCH (11:09)
[2020-08-29] MEDS: TORSEMIDE 20 MG TABLET. PO SCH ×2 (11:10→15:38)
[2020-08-29] MEDS: APIXABAN 2.5 MG TABLET PO SCH ×2 (11:10→20:36)
[2020-08-29] MEDS: CHOLECALCIFEROL (VITAMIN D3) 1,000 UNIT TABLET PO SCH (11:10)
[2020-08-29] MEDS: FOLIC ACID 1 MG TABLET PO SCH (11:10)
[2020-08-29] MEDS: hydrALAZINE 25 MG TABLET PO SCH ×2 (11:10→20:35)
[2020-08-29] MEDS: FINASTERIDE 5 MG TABLET. PO SCH (11:11)
[2020-08-29] MEDS: DOCUSATE SODIUM 100 MG CAPSULE PO PRN (11:11)
[2020-08-29] MEDS: FERROUS SULFATE 325 MG TABLET. PO SCH (11:11)
[2020-08-29] MEDS: TERAZOSIN 5 MG CAPSULE. PO SCH (11:11)
[2020-08-29] MEDS: FEBUXOSTAT 40 MG TABLET PO SCH (11:12)
[2020-08-29] MEDS: THYROID,PORK 60 MG TABLET PO SCH (11:12)
--- NOTE | 2020-08-29 12:11 | PN ---
DATE: SUBJECTIVE: The patient denies any new medical or neurological complaints. He denies headaches, chest pain, shortness of breath or palpitations, dysarthria or dysphagia. He slept fine throughout the night; however, according to the nursing staff, he is still somewhat confused. OBJECTIVE: GENERAL: Obese male, not in acute distress. VITAL SIGNS: Blood pressure 141/59, respiratory rate 16, pulse is 76 and regular, oxygen saturation is 96% on 1 liter per nasal cannula. HEENT: Normocephalic, atraumatic, otherwise unremarkable. NECK: Supple. Negative for carotid bruit, lymphadenopathy or thyromegaly. LUNGS: No wheezing or rales. CARDIOVASCULAR: ____ rhythm, normal S1, S2. No S3, S4 or murmur. ABDOMEN: Soft. Bowel sounds positive. EXTREMITIES: Negative for cyanosis, clubbing, or pitting edema. NEUROLOGICAL EXAM: Mental Status: The patient is alert and oriented to himself and the place. Speech is more fluent. There is no language dysfunction. Memory, judgment, and abstracting thinking are fair. The patient denies hallucination or delusion. Cranial nerves are intact. No focal motor or sensory deficit. The strength is 4/5 throughout. Deep tendon reflexes were symmetric and hypoactive without pathology responses. Gait is not tested. Motor: The patient does not demonstrate any jerking movements since being on Keppra and clonazepam at night. LABORATORY DATA: CBC revealed white blood cells of 9.2 thousand; hemoglobin 12; hematocrit 37; platelet count 158,000. Chemistry: Sodium 147, potassium 4, chloride 112, CO2 of 31, BUN 36, creatinine 1.8, glucose 191, calcium 8.6. IMPRESSION: 1. Acute encephalopathy - improved. 2. Intermittent jerking movements of the upper extremities, of myoclonic type subsided by medications. 3. Multiple medical problems include atrial fibrillation, diabetes mellitus, pneumonia, coronary artery disease, hypertension, gastroesophageal reflux disease, hypothyroidism and possible peripheral neuropathy, slight ____ and chronic kidney disease. RECOMMENDATIONS: 1. Continue with current management initiated by Dr. Chapman. 2. Continue with current medications. 3. Continue with previous outline neurological recommendations including EEG can be done on an outpatient basis. 4. Physical therapy evaluation. M Amy ANAYA MD DR: ALLISON/tania JOB#: [id number] / [id number]
[2020-08-29] MEDS: METOPROLOL SUCC 24HR ER 50 MG TAB.ER.24H. PO SCH (12:16)
[2020-08-29 14:31] VITALS: BP 162/73
--- NOTE | 2020-08-29 15:34 | RAD ---
INDICATION: Reason: worsening hypoxia and shortness of breath / Spl. Instructions: / History: . COMPARISON: Chest x-ray from one day prior TECHNIQUE: Axial CT images obtained through the chest without contrast. One or more of the following individualized dose reduction techniques were utilized for this examinat ion: 1. Automated exposure control; 2. Adjustment of the mA and/or kV according to patient size; 3 . Use of iterative reconstruction technique. FINDINGS: Some limitation secondary to patient motion. No pneumothorax is seen. Calcified granulomas. Subtle regions of bilateral groundglass opacity. Severe calcific atherosclerosi s. This includes of the coronary arteries. Poststernotomy changes and post-CABG changes. Scattered mildly prominent lymph nodes within the mediastinum. Heterogeneity of the thyroid. Underlying nodule not excluded. Heart is enlarged. 15 mm sclerotic lesion right mid rib. Degenerative changes of the spine with mild loss of height of multiple vertebral bodies including T4, T6, T8, T9. IMPRESSION: * Motion limits exam. Mild groundglass opacities bilaterally which could be from motion artifact but mild edema or small airway inflammation from pneumonitis is not excluded. * Severe calcific atherosclerosis. * Heterogeneity of the thyroid which could be from thyroid nodules. * Repeat demonstration of sclerotic lesion within right rib which appears slightly increased from pr ior from 2016. This is a common finding. Electronically signed by: Fredy Winters MD (08/29/2020 3:32 PM) [id number]
--- NOTE | 2020-08-29 18:19 | PN ---
DATE: 08/29/2020 SUBJECTIVE: The patient is sitting at the edge of the bed comfortably, in no apparent distress. Desaturates on exertion, but denied any chest pain. He did complain of shortness of breath and has also episodes of orthopnea, paroxysmal nocturnal dyspnea. His heart rate continues to accelerate on exertion and his diltiazem was increased to 180 twice a day. We will arrange for him to have a CT scan of the chest without contrast. Continue with IV antibiotic for now and decide on further management accordingly. PHYSICAL EXAMINATION: GENERAL: When I examined him this afternoon, he looked well and was clearly in no apparent respiratory distress. No pallor, jaundice, cyanosis or thyromegaly. No jugular venous distention. No lower limb edema. VITAL SIGNS: His heart rate was 83, blood pressure was 158/81, temperature was 98.9, respiratory rate was 14 and oxygen saturation was 96% on 1 liter of oxygen. HEAD, EYES, EARS, NOSE AND THROAT: Showed normocephalic, atraumatic. NECK: Supple. HEART: Showed normal first and second heart sounds. No gallop, rub or murmur. CHEST: Shows central trachea, equal bilateral chest expansion, air entry, vesicular sounds. No crepitation or rhonchi. ABDOMEN: Distended, soft, nontender. NEUROLOGIC: He is definitely more awake, alert, less confused and answers questions appropriately. All cranial nerves are intact. He moves extremities without difficulty. He ambulates with a walker. LABORATORY DATA: His lab work this morning showed a white cell count of 9200, hemoglobin 12, hematocrit 37, MCV 93, and platelet count of 158,000. Serum sodium was 147, potassium 4, chloride 112, bicarbonate 31, anion gap of 4, BUN 36, creatinine 1.8, estimated GFR was 36 mL per minute. Her glucose 191, calcium was 8.6. Total bilirubin, AST, ALT, alkaline phosphatase were normal. Total protein was 5.9, albumin was 2.9. His blood sugar seems to be reasonably controlled. ASSESSMENT: 1. Altered mental status. 2. Community-acquired pneumonia. 3. Atrial fibrillation with rapid ventricular response. 4. Congestive heart failure PLAN: My plan is to continue with IV antibiotic. We will arrange for him to have a CT scan of the chest without contrast and double the Cardizem to 180 mg twice a day. We will do a 6-minute walk to qualify him for oxygen and he probably can be discharged home tomorrow. TATYANA PERALTA MD DR: DONNA/tania JOB#: [id number] / [id number]
[2020-08-29 19:26] VITALS: BP 126/61
[2020-08-29] MEDS: MONTELUKAST 10 MG TABLET. PO SCH (20:35)
[2020-08-29 22:27] VITALS: BP 142/55
[2020-08-30 06:00] VITALS: BP 132/54
[2020-08-30] MEDS: SUCRALFATE 1 GM TABLET. PO SCH ×2 (07:29→11:26)
[2020-08-30] MEDS: INSULIN LISPRO 300 UNITS/3 ML VIAL. SQ SCH ×4 (08:00→11:41)
[2020-08-30] MEDS: PANTOPRAZOLE 40 MG TABLET. PO SCH (08:59)
[2020-08-30] MEDS: FERROUS SULFATE 325 MG TABLET. PO SCH (08:59)
[2020-08-30] MEDS: FINASTERIDE 5 MG TABLET. PO SCH (08:59)
[2020-08-30] MEDS: DOCUSATE SODIUM 100 MG CAPSULE PO PRN (08:59)
[2020-08-30] MEDS: CHOLECALCIFEROL (VITAMIN D3) 1,000 UNIT TABLET PO SCH (08:59)
[2020-08-30] MEDS: APIXABAN 2.5 MG TABLET PO SCH (08:59)
[2020-08-30] MEDS: metOLazone 2.5 MG TABLET PO SCH (09:00)
[2020-08-30] MEDS: TORSEMIDE 20 MG TABLET. PO SCH (09:00)
[2020-08-30] MEDS: HYDROCORTISONE 1% TOPICAL CREAM 30GM TUBE. TP SCH (09:00)
[2020-08-30] MEDS: levETIRAcetam 500 MG TABLET PO SCH (09:00)
[2020-08-30] MEDS: DICLOFENAC SODIUM 1% TOPICAL GEL 100GM TUBE. TP SCH (09:00)
[2020-08-30] MEDS: KETOTIFEN FUMARATE 0.025% OPHT SOLUTION BOTTLE. OU SCH (09:00)
[2020-08-30] MEDS: FOLIC ACID 1 MG TABLET PO SCH (09:00)
[2020-08-30] MEDS: NON FORMULARY ITEM (Pravastatin Sodium 1 TAB) PO SCH (09:00)
[2020-08-30] MEDS: POLYVINYL ALCOHOL 1.4% OPHTH SOLUTION 15ML BOTTLE. OD SCH (09:00)
[2020-08-30] MEDS: hydrALAZINE 25 MG TABLET PO SCH (09:01)
[2020-08-30] MEDS: EZETIMIBE 10 MG TABLET PO SCH (09:02)
[2020-08-30] MEDS: THYROID,PORK 60 MG TABLET PO SCH (09:03)
[2020-08-30] MEDS: TERAZOSIN 5 MG CAPSULE. PO SCH (09:03)
[2020-08-30] MEDS: FEBUXOSTAT 40 MG TABLET PO SCH (09:04)
[2020-08-30] MEDS: INSULIN GLARGINE SYRINGE. SQ SCH (09:16)
[2020-08-30] MEDS: PROBENECID 500 MG TABLET PO SCH (09:51)
[2020-08-30] MEDS: METOPROLOL SUCC 24HR ER 50 MG TAB.ER.24H. PO SCH (09:51)
[2020-08-30 09:57] VITALS: BP 138/63
[2020-08-30] MEDS ORDERED: DILT180C29 PO (13:16)
--- NOTE | 2020-08-30 13:30 | DISCH ---
HOME HEALTH DISCHARGE/MEDS DISCHARGE INFORMATION: Discharge Date: Aug 30, 2020 Final Diagnosis: Problems Medical Problems: (1) Acute delirium Status: Acute (2) Afib Status: Acute (3) Bilateral pneumonia Status: Acute (4) CHF (congestive heart failure) Status: Acute Condition on Discharge: Stable CODE STATUS: Code Status: DNR/DNI HOME HEALTH: Face to Face: I certify this patient is under my care and that I, or a nurse practitioner or physician's assistant director of residence life working with me, had a face to face encounter that meets the physician face to face encounter requirements with this patient on 08/30/2020 Medical Condition(s): Other Halfway For: Admin/Educate Injections Physical Therapy For: Evalulation/Treatment Occupational Therapy For: Evaluation/Treatment POST DISCHARGE ORDERS: DIET AFTER DISCHARGE: ADA CERTIFICATION STATEMENT: Certification Statement: Based on the above finding, I certify that this patient is confined to the home and needs intermittent halfway care, physical therapy and/or speech therapy, or continues to need occupational therapy.~ This patient is under my care, and I have initiated the establishment of the plan of care.~ This patient will be followed by myself or a community physician who will periodically review the plan of care. DISCHARGE MEDICATIONS: Home Meds Active Scripts Diltiazem Hcl (DILTIAZEM 24HR CD) 180 Mg Cap.er.24h, 1 CAP PO BID for A FIB for 30 Days, #60 CAP 0 Refills Prov:TATYANA PERALTA MD 08/30/20 Prednisone (PREDNISONE) 10 Mg Tablet, 10 MG PO DAILY, #60 TAB 2 Refills Prov:GOPI FOWLER MD 10/05/15 Sucralfate (CARAFATE) 1 Gm Tablet, 1 GM PO QIDACHS, #90 TAB Prov:GOPI FOWLER MD 10/05/15 Potassium Chloride (POTASSIUM CHLORIDE ORAL LIQUID) 20 Meq/15 Ml Liquid, 40 MEQ PO DAILY, #1 LIQUID Prov:GOPI FOWLER MD 10/05/15 Metoprolol Tartrate (METOPROLOL TARTRATE) 25 Mg Tablet, 75 MG PO BID, #60 TAB Prov:GOPI FOWLER MD 10/05/15 Metolazone (METOLAZONE) 2.5 Mg Tablet, 2.5 MG PO BIDACBL, #30 TAB 3 Refills Prov:GOPI FOWLER MD 10/05/15 Furosemide (FUROSEMIDE) 40 Mg Tablet, 40 MG PO BIDACBL, #60 TAB Prov:GOPI FOWLER MD 10/05/15 Reported Medications Metronidazole (METRONIDAZOLE) 70 Gm Gel.w.appl, 1 APPFUL VG QHS for Skin, #70 GM 08/28/20 Fluocinolone Acetonide (SYNALAR) 60 Ml Solution, 1 MARY TP DAILY for Skin for 30 Days, #60 ML 0 Refills 08/28/20 Carboxymethylcellulos/Glycerin (REFRESH OPTIVE EYE DROPS) 15 Ml Drops, 15 ML OP TID for Dry Eyes, DROP 08/28/20 Ketotifen Fumarate (KETOTIFEN FUMARATE) 5 Ml Drops, 0.025 % OP BID for Gout / Nerve Pain, DROP 08/28/20 Diclofenac Sodium (VOLTAREN) 100 Gm Gel..gram., 1 GM TP QID for pain for 30 Days, #1 EACH 0 Refills apply to affected area(s) 08/28/20 Fluticasone Propionate (FLOVENT 50MCG DISKUS) 50 Mcg Disk.w.dev, 50 MCG IH PRN PRN for SHORTNESS OF BREATH, EACH 08/28/20 Albuterol Sulfate (ALBUTEROL SULFATE NEB SOLN) 1.25 Mg/3 Ml Vial.neb, 2.5 MG NEB PRN for shortness of air., EACH 0 Refills 08/28/20 Albuterol Sulfate (Proventil Hfa) 6.7 Gm Hfa.aer.ad, 90 MCG IH PRN for Wheezing, EACH 08/28/20 Insulin Glargine,Hum.rec.anlog (LANTUS SOLOSTAR) 100 Unit/1 Ml Insuln.pen, 50 UNIT SQ QHS for Diabetes, #15 ML 3 Refills 08/28/20 Insulin Glargine,Hum.rec.anlog (LANTUS SOLOSTAR) 100 Unit/1 Ml Insuln.pen, 10 UNIT SQ QHS for Diabetes, #15 ML 3 Refills 08/28/20 Insulin Aspart (NOVOLOG) 100 Unit/1 Ml Vial, 1 UNIT SQ TID for Diabetes, EACH 08/28/20 Docusate Sodium (COLACE) 100 Mg Capsule, 100 MG PO PRN for Hard Stools, CAP 08/28/20 Probenecid (PROBENECID) 500 Mg Tablet, 500 MG PO DAILY for Gout, TAB 08/28/20 Febuxostat (ULORIC) 80 Mg Tablet, 80 MG PO DAILY for Gout, TAB 08/28/20 Ferrous Sulfate (FERROUS SULFATE) 325 Mg Tablet, 1 TAB PO DAILY for Iron Deficient , #30 TAB 3 Refills 08/28/20 Cholecalciferol (Vitamin D3) (Vitamin D3) 1,250 Mcg Capsule, 1250 MCG PO DAILY for Low Blood Iron, CAP 08/28/20 Folic Acid (Folic Acid) 0.8 Mg Capsule, 1 CAP PO DAILY for Vitamin B for 30 Days, #30 CAP 0 Refills 08/28/20 Montelukast Sodium (MONTELUKAST SODIUM TABLET ) 10 Mg Tablet, 10 MG PO HS for FOR ASTHMA, TAB 0 Refills 08/28/20 Guaifenesin (MUCINEX) 600 Mg Tablet.er, 600 MG PO BID for Mucus., TAB.SR 08/28/20 Pravastatin Sodium (PRAVASTATIN SODIUM) 80 Mg Tablet, 1 TAB PO DAILY for Cholesterol, #90 TAB 3 Refills 08/28/20 Finasteride (FINASTERIDE) 5 Mg Tablet, 1 TAB PO DAILY for Prostate, #90 TAB 3 Refills 08/28/20 Terazosin Hcl (TERAZOSIN HCL) 10 Mg Capsule, 10 MG PO DAILY for Blood Pressure, CAP 08/28/20 Thyroid,Pork (ARMOUR THYROID) 30 Mg Tablet, 1 TAB PO DAILY for Hypothyroid, #30 TAB 5 Refills 08/28/20 Torsemide (TORSEMIDE) 20 Mg Tablet, 20 MG PO BID for Fluid Overload, TAB 08/28/20 Metolazone (METOLAZONE) 2.5 Mg Tablet, 2.5 MG PO PRN 2-3XD for Fluid Overload, TAB 08/28/20 Metoprolol Succinate (METOPROLOL SUCCINATE ( XL )) 100 Mg Tab.er.24h, 100 MG PO BID PRN for Hypertension, #30 TAB 0 Refills 08/28/20 Hydralazine Hcl (HYDRALAZINE HCL) 25 Mg Tablet, 25 MG PO PRN PRN for Hypertension, TAB 08/28/20 Hydralazine Hcl (HYDRALAZINE HCL) 25 Mg Tablet, 1 TAB PO BID for Hypertension, #180 TAB 3 Refills 08/28/20 Nitroglycerin (NITROGLYCERIN SubLingual) 0.4 Mg Tab.subl, 0.4 MG SL PRN Q5MIN PRN for CHEST PAIN, ML 08/28/20 Pantoprazole Sodium (PANTOPRAZOLE SODIUM) 40 Mg Tablet.dr, 40 MG PO DAILY for GERD, TAB 08/28/20 Ezetimibe (ZETIA) 10 Mg Tablet, 10 MG PO DAILY for High Cholesterol , TAB 08/28/20 Apixaban (ELIQUIS) 2.5 Mg Tablet, 2.5 MG PO BID for Atrial Fibrillation, TAB 08/28/20 Insulin Aspart (NOVOLOG FLEXPEN) 100 Unit/1 Ml Insuln.pen, 14 UNITS SQ TIDWMEALS for high blood sugar Take novolog 12 units with each meal plus: Sliding scale insulin 150-200 = 6 units 200-250= 8 units 250-300= 12 units 301-350 = 15 units 351-400 = 20 UNITS 400+ = 25 UNITS Also, just use the sliding scale at bedtime. (Do not add the sliding scale). LAST DOSE GIVEN: DATE:10/05/15 TIME:1200 NEXT DOSE DUE: DATE:10/05/15 TIME:169909/09/15 Insulin Glargine,Hum.rec.anlog (LANTUS) 100 Unit/1 Ml Vial, 80 UNIT SQ HS for HIGH BLOOD SUGAR LAST DOSE GIVEN: DATE:10/04/15 TIME:2099 NEXT DOSE DUE: DATE:10/05/15 TIME:209903/15/14 Discontinued Reported Medications Diltiazem Hcl (TIAZAC) 180 Mg Capsule.er, 180 MG PO DAILY for Atrial Fibrillation, CAP.SR 08/28/20 Sucralfate (SUCRALFATE) 1 Gm Tablet, 1 TAB PO QIDACHS for PREVENT ULCERS/HEARTBURN LAST DOSE GIVEN: DATE:10/05/15 TIME:1200 NEXT DOSE DUE: DATE:10/05/15 TIME:1700 10/03/15 Potassium Chloride (POTASSIUM CHLORIDE) 10 Meq Capsule.er, 1 CAP PO DAILY for SUPPLEMENT LAST DOSE GIVEN: DATE:10/05/15 TIME:0900 NEXT DOSE DUE: DATE:10/06/15 TIME:0900 10/03/15 [Sodium chloride ] No Conflict Check, 1 DROP OU PRN PRN for Eye problems LAST DOSE GIVEN: DATE: TIME: NEXT DOSE DUE: DATE: TIME: 10/03/15 [Uloric] No Conflict Check, 80 MG PO QHS for Gout LAST DOSE GIVEN: DATE:10/04/15 TIME:2099 NEXT DOSE DUE: DATE:10/05/15 TIME:209910/03/15 [Cox Concentrate] No Conflict Check, 2 TBS PO DAILY PRN for Gout LAST DOSE GIVEN: DATE:10/05/15 TIME:0900 NEXT DOSE DUE: DATE:10/06/15 TIME:89910/03/15 [Proventil HFA INH] No Conflict Check, 2 PUFF INH BID for shortness of air LAST DOSE GIVEN: DATE: TIME: NEXT DOSE DUE: DATE: TIME: 10/03/15 [promethazine/codiene] No Conflict Check, 5 ML PO PRN Q4HRS PRN for COUGH LAST DOSE GIVEN: DATE: TIME: NEXT DOSE DUE: DATE: TIME: 10/03/15 [Symbicort 160-4.5] No Conflict Check, 2 PUFF INH BID for shortness of air LAST DOSE GIVEN: DATE:10/05/15 TIME:899 NEXT DOSE DUE: DATE:10/05/15 TIME:209910/03/15 [lozenges] No Conflict Check, 1 PO PRN Q4-6HRS PRN for sore throat LAST DOSE GIVEN: DATE: TIME: NEXT DOSE DUE: DATE: TIME: 10/03/15 Metolazone (METOLAZONE) 2.5 Mg Tablet, 2 TAB PO DAILY08 for HIGH BLOOD PRESSURE LAST DOSE GIVEN: DATE:10/05/15 TIME:0800 NEXT DOSE DUE: DATE:10/06/15 TIME:0810/03/15 Zolpidem Tartrate (AMBIEN) 5 Mg Tablet, 5 MG PO PRN QHS PRN for INSOMNIA LAST DOSE GIVEN: DATE:10/04/15 TIME:2099 NEXT DOSE DUE: DATE: TIME: 10/03/15 [GI cocktail] No Conflict Check, 5 ML PO PRN Q4HRS PRN for THROAT PAIN/HEARTBURN LAST DOSE GIVEN: DATE: TIME: NEXT DOSE DUE: DATE: TIME: 10/03/15 Benzonatate (TESSALON PERLE) 100 Mg Capsule, 1 CAP PO PRN TID PRN for COUGH LAST DOSE GIVEN: DATE:10/04/15 TIME:2099 NEXT DOSE DUE: DATE: TIME: 10/03/15 Aspirin (ASPIR-LOW) 81 Mg Tablet.dr, 81 MG PO QHS for PREVENT BLOOD CLOTS LAST DOSE GIVEN: DATE:10/04/15 TIME:2099 NEXT DOSE DUE: DATE:10/05/15 TIME:209910/03/15 Metoprolol Tartrate (METOPROLOL TARTRATE) 25 Mg Tablet, 2 TAB PO BID for HIGH BLOOD PRESSURE LAST DOSE GIVEN: DATE:10/05/15 TIME:0900 NEXT DOSE DUE: DATE:10/05/15 TIME:209909/09/15 Furosemide (FUROSEMIDE) 40 Mg Tablet, 1.5 TAB PO NOON for REMOVE EXCESS FLUIDS LAST DOSE GIVEN: DATE:10/05/15 TIME:1199 NEXT DOSE DUE: DATE:10/06/15 TIME:119909/09/15 Diltiazem Hcl (CARDIZEM CD) 240 Mg Cap.er.24h, 2 CAP PO DAILY for CONTROLS HEART RATE LAST DOSE GIVEN: DATE:10/05/15 TIME:0900 NEXT DOSE DUE: DATE:10/06/15 TIME:89909/09/15 Apixaban (ELIQUIS) 5 Mg Tablet, 5 MG PO BID for PREVENT BLOOD CLOTS LAST DOSE GIVEN: DATE:10/05/15 TIME:09 NEXT DOSE DUE: DATE:10/05/15 TIME:209909/09/15 Sodium Chloride (BABY AYR SALINE) 30 Ml Drops, 1 DROP OU HS for EYE DRYNESS LAST DOSE GIVEN: DATE:10/04/15 TIME:2099 NEXT DOSE DUE: DATE:10/05/15 TIME:209903/31/15 Saxagliptin Hcl (ONGLYZA) 5 Mg Tablet, 2.5 MG PO DAILY for HIGH BLOOD SUGAR LAST DOSE GIVEN: DATE:10/05/15 TIME:0900 NEXT DOSE DUE: DATE:10/06/15 TIME:89903/31/15 Diclofenac Sodium (VOLTAREN) 100 Gm Gel..gram., 1 GM TP PRN QID PRN for MUSCLE PAIN, GM use as needed topically for pain LAST DOSE GIVEN: DATE: TIME: NEXT DOSE DUE: DATE: TIME: 03/31/15 Probenecid (PROBENECID) 500 Mg Tablet, 500 MG PO DAILY for gout LAST DOSE GIVEN: DATE:10/05/15 TIME:0900 NEXT DOSE DUE: DATE:10/06/15 TIME:89903/31/15 Gabapentin (GABAPENTIN ) 300 Mg Capsule, 300 MG PO TID for nerve pain LAST DOSE GIVEN: DATE:10/05/15 TIME:1200 NEXT DOSE DUE: DATE:10/05/15 TIME:209903/31/15 Fluticasone Propionate (FLUTICASONE PROPIONATE NASAL SPRAY) 16 Gm [place].susp, 2 SPR NS DAILY for ALLERGIES, INHALER LAST DOSE GIVEN: DATE:10/05/15 TIME:899 NEXT DOSE DUE: DATE:10/06/15 TIME:89903/31/15 Ferrous Sulfate (IRON SUPPLEMENT) 325 Mg Tablet, 65 MG PO HS for supplement LAST DOSE GIVEN: DATE:10/04/15 TIME:2099 NEXT DOSE DUE: DATE:10/05/15 TIME:209903/31/15 Nitroglycerin (NITROGLYCERIN SubLingual) 0.4 Mg Tab.subl, 0.4 MG SL PRN Q5MIN PRN for CHEST PAIN, BOTTLE resume as needed for chest pain LAST DOSE GIVEN: DATE: TIME: NEXT DOSE DUE: DATE: TIME: 03/15/14 Tiotropium Maud (SPIRIVA) 18 Mcg Cap.w.dev, 18 MCG IH HS for SHORTNESS OF BREATH LAST DOSE GIVEN: DATE:10/04/15 TIME:2099 NEXT DOSE DUE: DATE:10/05/15 TIME:209903/15/14 Guaifenesin (MUCINEX) 600 Mg Tablet.er, 600 MG PO BID for THIN MUSCOUS SECRETIONS LAST DOSE GIVEN: DATE:10/05/15 TIME:899 NEXT DOSE DUE: DATE:10/05/15 TIME:209903/15/14 Folic Acid (FOLIC ACID) 1 Mg Tablet, 1 MG PO HS for supplement LAST DOSE GIVEN: DATE:10/04/15 TIME:2099 NEXT DOSE DUE: DATE:10/05/15 TIME:209903/15/14 Cholecalciferol (Vitamin D3) (VITAMIN D) 1,000 Unit Capsule, 1000 UNIT PO DAILY for SUPPLEMENT 2 tabs AM, 1 tab PM LAST DOSE GIVEN: DATE:10/05/15 TIME:00 NEXT DOSE DUE: DATE:10/06/15 TIME:89903/15/14 Omeprazole (OMEPRAZOLE) 20 Mg Capsule.dr, 20 MG PO BID for HEARTBURN / GAS LAST DOSE GIVEN: DATE:10/05/15 TIME:0900 NEXT DOSE DUE: DATE:10/05/15 TIME:209903/15/14 Pravastatin Sodium (PRAVASTATIN SODIUM) 80 Mg Tablet, 80 MG PO HS for high cholesterol LAST DOSE GIVEN: DATE:10/04/15 TIME:2099 NEXT DOSE DUE: DATE:10/05/15 TIME:209903/15/14 Finasteride (FINASTERIDE) 5 Mg Tablet, 5 MG PO HS for prostate problems LAST DOSE GIVEN: DATE:10/04/15 TIME:2099 NEXT DOSE DUE: DATE:10/05/15 TIME:209903/15/14 Terazosin Hcl (TERAZOSIN HCL) 10 Mg Capsule, 10 MG PO HS for high blood pressure LAST DOSE GIVEN: DATE:10/04/15 TIME:2099 NEXT DOSE DUE: DATE:10/05/15 TIME:209903/15/14 TATYANA PERALTA MD Aug 30, 2020 13:30
--- NOTE | 2020-08-30 13:45 | DS ---
DATE OF DISCHARGE: HOSPITAL COURSE: The patient is an 85-year-old male patient who was admitted to the Emergency Room with altered mental status, felt to be likely due to him being started on baclofen. His encephalopathy has resolved. Chest x-ray showed that he has probably bilateral lung infiltrate and we treated him for community-acquired pneumonia with Rocephin. Unfortunately, he is ALLERGIC TO ERYTHROMYCIN AND TETRACYCLINE. He did actually improve, his mental status has really changed and improved. He was hypoxic and therefore will be discharged home with home health and home oxygen and his atrial fibrillation was less than optimally controlled, so we increased his Cardizem to 180 mg twice a day and as he remained hemodynamically stable and afebrile with normal white cell count, a decision was made to discharge him home with home health and home oxygen. OBJECTIVE: GENERAL: When I saw him this afternoon, he looked well and was clearly in no apparent respiratory distress. No pallor, jaundice, cyanosis or thyromegaly. No jugular venous distension. No limb edema. VITAL SIGNS: His heart rate was 87, blood pressure was 138/63, temperature 98.4, respiratory rate was 20, and oxygen saturation was 95% on 1 liter of oxygen. HEAD, EYES, EARS, NOSE AND THROAT: Showed normocephalic, atraumatic. NECK: Supple. HEART: Normal first and second heart sounds. No gallop, rub or murmur. CHEST: Clear to auscultation. No crepitation or rhonchi. ABDOMEN: Distended, soft, nontender. NEUROLOGIC: He is definitely more awake, alert, responding appropriately. All his cranial nerves are intact. He moves extremities without difficulty, ambulates with a walker. His intake over the last 24 hours was incompletely recorded as well as output. LABORATORY WORK: Showed a white cell count 9200, hemoglobin 12, hematocrit 37, MCV 93, and platelet count of 158,000. His serum sodium was 147, potassium 4, chloride 112, bicarbonate 31, anion gap of 4, BUN 35, creatinine 1.8, estimated GFR was 36 mL per minute. His glucose 191, calcium was 8.6. Total bilirubin, AST, ALT, alkaline phosphatase were normal. Total protein was 5.9, albumin was 2.9. His urinalysis was essentially unremarkable. ASSESSMENT: 1. Altered mental status, resolved. 2. Community-acquired pneumonia. 3. Atrial fibrillation without particular response, rate well controlled, well anticoagulated. 4. Congestive heart failure. 5. Chronic hypoxic respiratory failure for which he is now on home oxygen. 6. Chronic diastolic congestive heart failure. 7. Hypertension. 8. Coronary artery disease. 9. Hyperlipidemia. 10. Chronic obstructive pulmonary disease. 11. Gout. 12. Morbid obesity. 13. Type 2 diabetes mellitus with diabetic neuropathy. 14. Gastroesophageal reflux disease. 15. Obstructive sleep apnea. TATYANA PERALTA MD DR: DONNA/tania JOB#: [id number] / [id number]
--- NOTE | 2020-08-31 23:37 | PN ---
DATE: 08/30/2020 SUBJECTIVE: The patient denies any new medical or neurological complaints, talking to nursing staff. The patient had very quiet night. He did not have any recurrent myoclonic jerking of the upper extremities after starting him on Keppra and clonazepam at night. He continues to deny chest pain, shortness of breath or palpitation, dysarthria or dysphagia. OBJECTIVE: GENERAL: Obese male, not in acute distress. VITAL SIGNS: Blood pressure 132/54, respiratory rate 20, pulse is 87 and regular, oxygen saturation is 95% on 1 liter by nasal cannula. HEENT: Normocephalic, atraumatic, otherwise unremarkable. NECK: Supple. Negative for carotid bruit, lymphadenopathy or thyromegaly. LUNGS: Clear to A and P. CARDIOVASCULAR: Regular rhythm, normal S1, S2. ABDOMEN: Soft. Bowel sounds positive. EXTREMITIES: Negative for cyanosis, clubbing, or pedal edema. NEUROLOGICAL EXAM: Mental Status: The patient is alert and oriented to himself and place. Speech is more fluent. There is no language dysfunction. Memory, judgment, and abstracting thinking are fair. The patient denies hallucination or delusion. Cranial nerves are intact. Motor examination revealed no focal muscle bulk was seen. The strength was 4/5 throughout. Sensory examination revealed normal pinprick and light touch senses throughout. Deep tendon reflexes were asymmetric and hypoactive with absent Achilles responses. Gait not tested. DIAGNOSTIC DATA: Chest CT scan performed yesterday revealed severe atherosclerosis, __ of the thyroid, no evidence of pulmonary embolism. IMPRESSION: 1. Acute encephalopathy -- resolved. 2. Intermittent myoclonic jerking movements of the upper extremity -- subsided by medication. 3. Multiple medical problems include atrial fibrillation, diabetes mellitus, pneumonia, coronary artery disease, hypertension, gastroesophageal reflux disease, hypothyroidism and possible peripheral neuropathy in the lower extremities. RECOMMENDATIONS: 1. We will continue with current management initiated by Dr. Chapman. 2. The patient should have neurological evaluation by Dr. Anaya and arrange for electroencephalogram on an outpatient basis. 3. Physical therapy evaluation. M Amy ANAYA MD DR: ALLISON/tania JOB#: [id number] / [id number]
== END 2020-08-30 14:05 | disposition home health service (06) | DRG 91 ==
LOC: ER 06:27 → ICU 10:31
PROVIDERS: ADMIT Internal Medicine; ATTEND Internal Medicine
DX: G92 Toxic encephalopathy (principal); J18.9 Pneumonia, unspecified organism; E87.1 Hypo-osmolality and hyponatremia; I13.0 Hypertensive heart and chronic kidney disease with heart failure and stage 1 through stage 4 chronic kidney disease, or unspecified chronic kidney disease; I48.21 Permanent atrial fibrillation; I50.32 Chronic diastolic (congestive) heart failure; J44.0 Chronic obstructive pulmonary disease with (acute) lower respiratory infection; J96.11 Chronic respiratory failure with hypoxia; T42.8X5A Adverse effect of antiparkinsonism drugs and other central muscle-tone depressants, initial encounter; E03.9 Hypothyroidism, unspecified; E11.22 Type 2 diabetes mellitus with diabetic chronic kidney disease; E11.42 Type 2 diabetes mellitus with diabetic polyneuropathy; E11.51 Type 2 diabetes mellitus with diabetic peripheral angiopathy without gangrene; E11.65 Type 2 diabetes mellitus with hyperglycemia; E66.01 Morbid (severe) obesity due to excess calories; E78.00 Pure hypercholesterolemia, unspecified; E78.5 Hyperlipidemia, unspecified; G47.33 Obstructive sleep apnea (adult) (pediatric); I25.10 Atherosclerotic heart disease of native coronary artery without angina pectoris; K21.9 Gastro-esophageal reflux disease without esophagitis; M10.9 Gout, unspecified; N18.30 Chronic kidney disease, stage 3 unspecified; Z79.4 Long term (current) use of insulin; Z82.49 Family history of ischemic heart disease and other diseases of the circulatory system; Z87.891 Personal history of nicotine dependence; Z88.1 Allergy status to other antibiotic agents; Z90.49 Acquired absence of other specified parts of digestive tract; Z95.1 Presence of aortocoronary bypass graft; Z95.5 Presence of coronary angioplasty implant and graft; Z88.8 Allergy status to other drugs, medicaments and biological substances; Y92.89 Other specified places as the place of occurrence of the external cause
CPT/HCPCS: 36415; 36600; 70450; 71045; 71250; 80048; 80053; 81001; 82140; 82803; 82947; 84484; 85025; 85027; 93005; 94618; 96365; 96368; 96375; J0456; J0696; J1815; J2405; J7050; 97116; 97530; 99285-25

== ENCOUNTER 2020-09-03 16:36 | Inpatient (IN) | payer MEDICARE, OTHER ==
[~2020-09-03] VITALS: Ht 177.8 cm; Wt 115.2 kg
[~2020-09-03 16:36] MED LIST changes: +ALBU1.25 NEB; +ALBU6.7H8 IH; +APIX2.5T PO; +CARB15DR3 OP; +CHOL500050 PO; +DILT180C29 PO; +DILT180C86 PO; +DOCU-109 PO; +EZET10TA20 PO; +FEBU80TA2 PO; +FERR325T14 PO; +FLUO60SO TP; +FLUT50DI IH; +FOLI0.8C PO; +HYDR-2868 PO; +INSU100I13 SQ; +INSU100V31 SQ; +KETO5DRO89 OP; +METO-247 PO; +METR70GE2 VG; +PANT40TA6 PO; +THYR30TA PO; +TORS20TA2 PO
--- NOTE | 2020-09-03 17:11 | PHYS DOC ---
Past History Past Medical History: A-Fib, CAD, CHF, COPD, Diabetes, GERD, High Cholesterol, Heart Disease, Hypertension, Other Past Surgical History: Appendectomy, Cholecystectomy, Coronary Bypass Surgery, Other Smoking: Quit Greater Than 1 Year Alcohol Use: None Drug Use: None Adult General Chief Complaint Chief Complaint: SHORTNESS OF BREATH HPI HPI Patient is a 85-year-old male presenting with daughter for weakness. Patient was seen by myself in our ER approximately 1 week ago for altered mental status. It was determined that patient was likely delirious from underlying pneumonia and patient was admitted to our hospital. He received IV antibiotics and was subsequently discharged back home with daughter with home health, oxygen, and continued antibiotic use which daughter believes was Keflex. He has been taking all medications as scheduled; however, patient continues to be weak and unable to care for self. Daughter reports she has been unable to attend to patient's needs fully. Patient has had fluctuating mentation episodes of confusion and visual hallucinations noted per daughter. Also reports that patient had observed fall due to weakness, this occurred at home when patient became too weak to hold himself up falling down, he braced his fall, did not hit his head or suffer loss of consciousness, no deformities or ongoing pain from this fall noted. Daughter presents with patient today requesting placement to SNF for other facility. Confirms patient is DNR at time of the ER arrival Review of Systems Review of Systems Fourteen body systems of review of systems have been reviewed. See HPI for pertinent positives and negative responses, other veliz all other systems are negative, non-pertinent or non-contributory Allergies Allergies Allergies Coded Allergies Type Severity Reaction Last Updated Verified Tetracyclines Allergy Intermediate 09/10/15 Yes atorvastatin Allergy Intermediate 09/10/15 Yes diphenhydramine Allergy Intermediate 09/10/15 Yes erythromycin base Allergy Intermediate 09/10/15 Yes ether Allergy Intermediate 09/10/15 Yes Physical Exam Physical Exam Constitutional: Well developed, well nourished, no acute distress, non-toxic appearance. HENT: Normocephalic, atraumatic, bilateral external ears normal, oropharynx dry, no oral exudates, nose normal. Eyes: PERRLA, EOMI, conjunctiva normal, no discharge. Neck: Normal range of motion, no tenderness, supple, no stridor. Cardiovascular: Heart rate regular, sinus rhythm, no murmurs rubs or gallops Lungs & Thorax: No respiratory distress, no increased work of breathing, diminished lung sounds and crackles in bilateral bases Abdomen: Bowel sounds normal, soft, no tenderness, no masses, no pulsatile masses. Nonsurgical abdomen, no peritoneal signs Skin: Warm, dry, no erythema, no rash. Back: No tenderness, no CVA tenderness. Extremities: No tenderness, no cyanosis, no clubbing, ROM intact, no edema. Neurologic: Alert and oriented X 3, grossly normal motor & sensory function, unsteady gait, no focal deficits noted. Psychologic: Flat affect, depressed mood, impaired short-term memory, poor 3 word recall Current Patient Data Vital Signs Vital Signs Date Time Temp Pulse Resp B/P (MAP) Pulse Ox O2 Delivery O2 Flow Rate FiO2 09/04/20 05:02 97.8 72 20 149/78 (101) 96 Nasal Cannula 3.0 09/03/20 22:39 97.7 101 16 132/66 (88) 95 Nasal Cannula 3.0 09/03/20 21:53 115 156/135 09/03/20 21:52 115 156/135 09/03/20 20:00 Nasal Cannula 3.0 09/03/20 19:11 98.4 115 36 156/135 (142) 88 Room Air 09/03/20 19:00 97.2 91 20 183/90 (121) 96 Nasal Cannula 3.0 Lab Results Laboratory Tests Test 09/03/20 16:52 09/03/20 21:19 09/04/20 03:50 White Blood Count 8.4 x10^3/uL Red Blood Count 4.37 x10^6/uL Hemoglobin 13.3 g/dL Hematocrit 40.6 % Mean Corpuscular Volume 93 fL Mean Corpuscular Hemoglobin 30 pg Mean Corpuscular Hemoglobin Concent 33 g/dL Red Cell Distribution Width 15.0 % Platelet Count 167 x10^3/uL Neutrophils (%) (Auto) 79 % Lymphocytes (%) (Auto) 12 % Monocytes (%) (Auto) 8 % Eosinophils (%) (Auto) 1 % Basophils (%) (Auto) 1 % Neutrophils # (Auto) 6.6 x10^3uL Lymphocytes # (Auto) 1.0 x10^3/uL Monocytes # (Auto) 0.6 x10^3/uL Eosinophils # (Auto) 0.1 x10^3/uL Basophils # (Auto) 0.1 x10^3/uL Sodium Level 145 mmol/L Potassium Level 3.7 mmol/L Chloride Level 105 mmol/L Carbon Dioxide Level 34 mmol/L Anion Gap 6 Blood Urea Nitrogen 36 mg/dL Creatinine 1.8 mg/dL Estimated GFR (Cockcroft-Gault) 36.2 Glucose Level 280 mg/dL Lactic Acid Level 1.5 mmol/L Calcium Level 9.2 mg/dL Troponin I Quantitative 0.017 ng/mL Glucose (Fingerstick) 180 mg/dL Urine Collection Type Unknown Urine Color Yellow Urine Clarity Clear Urine pH 5.0 Urine Specific [place] 1.025 Urine Protein >100 mg/dl Urine Glucose (UA) 100 mg/dL Urine Ketones (Stick) Neg mg/dL Urine Blood Neg Urine Nitrite Neg Urine Bilirubin Neg Urine Urobilinogen Dipstick 0.2 mg/dL Urine Leukocyte Esterase Neg Urine RBC 0 /HPF Urine WBC Occ /HPF Urine Squamous Epithelial Cells Occ /LPF Urine Bacteria 0 /HPF EKG EKG EKG ordered and interpreted by myself at 1709 hrs. as sinus rhythm at 88 bpm, prolonged QTC at 483 with otherwise unremarkable intervals, no axis deviation, no acute ischemic findings, no STEMI Radiology/Procedures Radiology/Procedures PROCEDURE: PORTABLE CHEST 1V XR CHEST 1V History: Reason: Shortness of breath / Spl. Instructions: / History: Comparison: August 28, 2020 Findings: Small right pleural effusion. Ill-defined bibasilar opacities. Prior median sternotomy. Unchanged enlarged chronic size. No pneumothorax. Impression: 1. Ill-defined bibasilar opacities, may represent atelectasis or developing infiltrates. 2. Small right pleural effusion. Electronically signed by: Corona Melendez DO (09/03/2020 5:33 PM) [facility] Heart Score C/O Chest Pain: No HEART Score for Chest Pain: HEART Score for Chest Pain Response (Comments) Value History Slighlty/Non-Suspicious 0 ECG Normal 0 Age > 65 2 Risk Factors >3 Risk Factors or Hx CAD 2 Troponin < Normal Limit 0 Total 4 Risk Factors: Risk Factors: DM, Current or recent (<one month) smoker, HTN, HLP, family history of CAD, obesity. Risk Scores: Risk Factors: DM, Current or recent (<one month) smoker, HTN, HLP, family history of CAD, obesity. Course & Med Decision Making Course & Med Decision Making Hemodynamically stable patient with history concerning for ongoing delirium and generalized weakness, there is fear that patient cannot care for self. Physical exam grossly nonconcerning. ER work-up grossly nonconcerning Daughter concerned about patient's ability to be discharged home safely. Patient unable to safely ambulate and care for self at home. Unsafe to disposition home; at minimum plan admission for home safety evaluation, social and physical therapy evaluations, possible placement Discussed case with on-call hospitalist, Dr. Perkins, who agreed need for admission for continued care of patient's underlying pneumonia with IV Rocephin and azithromycin and hospital admission I updated patient and daughter on proposed plan of care and they were both amenable for admission. Daughter confirms that patient is DNR status. All questions and concerns addressed prior to hospital admission Dragon Disclaimer Dragon Disclaimer This electronic medical record was generated, in whole or in part, using a voice recognition dictation system. Departure Departure: Impression: Primary Impression: Community acquired pneumonia Additional Impressions: Weakness History of fall DNR (do not resuscitate) Disposition: ADMITTED INPT THIS HOSP Admitting Physician: Quan Perkins Condition: STABLE Referrals: FERN ABARCA (PCP) Problem Qualifiers ROBERT FUNES DO Sep 03, 2020 17:11
[2020-09-03 17:15] LABS: BASO # 0.1 x10^3/uL (0.0-0.2); BASO % 1 % (0-3); EOS # 0.1 x10^3/uL (0.0-0.7); EOS % 1 % (0-3); HEMATOCRIT 40.6 % (39.0-53.0); HEMOGLOBIN 13.3 g/dL (13.0-17.5); LYMPH % 12 % (24-48); MEAN CORPUSCULAR HEMOGLOBIN 30 pg (25-35); MEAN CORPUSCULAR HGB CONC 33 g/dL (31-37); MEAN CORPUSCULAR VOLUME 93 fL (79-100); MONO # 0.6 x10^3/uL (0.0-1.1); MONO % 8 % (0-9); NEUT # 6.6 x10^3uL (1.8-7.7); NEUT % 79 % (31-73); PLATELET COUNT 167 x10^3/uL (140-400); RED BLOOD COUNT 4.37 x10^6/uL (4.30-5.70); WHITE BLOOD COUNT 8.4 x10^3/uL (4.0-11.0)
--- NOTE | 2020-09-03 17:15 | EKG ---
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
[2020-09-03 17:20] LABS: CALCIUM 9.2 mg/dL (8.5-10.1); CREATININE 1.8 mg/dL (0.7-1.3); GFR 36.2; POTASSIUM 3.7 mmol/L (3.5-5.1)
--- NOTE | 2020-09-03 17:36 | RAD ---
XR CHEST 1V History: Reason: Shortness of breath / Spl. Instructions: / History: Comparison: August 28, 2020 Findings: Small right pleural effusion. Ill-defined bibasilar opacities. Prior median sternotomy. Unchanged enl arged chronic size. No pneumothorax. Impression: 1. Ill-defined bibasilar opacities, may represent atelectasis or developing infiltrates. 2. Small right pleural effusion. Electronically signed by: Corona Melendez DO (09/03/2020 5:33 PM) [facility]
[2020-09-03] MEDS ORDERED: AZITHROMYCIN 500 MG in IV NORMAL SALINE 250ML 250 ML IV ONE (18:00)
[2020-09-03] MEDS ORDERED: IV NORMAL SALINE 250ML 250 ML ONE (18:15)
[2020-09-03] MEDS ORDERED: cefTRIAXone SODIUM 1 GM VIAL ONE (18:16)
[2020-09-03] MEDS ORDERED: AZITHROMYCIN 500 MG VIAL. IV ONE (18:16)
[2020-09-03] MEDS ORDERED: IV NORMAL SALINE 50ML 50 ML ONE (18:16)
[2020-09-03 19:00] VITALS: BP 183/90
--- NOTE | 2020-09-03 19:00 | NUR ---
The patient, JS STOREY, 85 y/o, M admitted by HOUSTON ELLISON MD, was given written information regarding hospital policies, unit procedures and contact persons. Valuables were checked and left with pt, see chart.
[2020-09-03] MEDS ORDERED: BUDE10.2 IH (20:48)
[2020-09-03] MEDS ORDERED: METO50TA29 PO (20:54)
[2020-09-03] MEDS ORDERED: ZOLP5TAB PO (20:55)
[2020-09-03] MEDS: BUDESONIDE 0.5 MG/2 ML NEBU NEB SCH (21:00)
[2020-09-03] MEDS ORDERED: NITROGLYCERIN SUBLINGUAL 0.4 MG BOTTLE OF 25. SL PRN (21:00)
[2020-09-03] MEDS ORDERED: ZOLPIDEM 5 MG TABLET. PO PRN (21:00)
[2020-09-03] MEDS: ALBUTEROL SULFATE 2.5 MG/3 ML NEBU. NEB SCH (21:00)
[2020-09-03] MEDS ORDERED: ALBUTEROL SULFATE 2.5 MG/3 ML NEBU. NEB PRN (21:00)
[2020-09-03] MEDS: SUCRALFATE 1 GM TABLET. PO SCH (21:52)
[2020-09-03] MEDS: APIXABAN 2.5 MG TABLET PO SCH (21:53)
[2020-09-03] MEDS: METOPROLOL SUCC 24HR ER 50 MG TAB.ER.24H. PO SCH (21:53)
[2020-09-03] MEDS: INSULIN GLARGINE SYRINGE. SQ SCH (21:54)
[2020-09-03 22:39] VITALS: BP 132/66
--- NOTE | 2020-09-04 03:11 | NUR ---
Nursing note: Pt unable to provide this RN with med list. Per previous inpatient/discharge medications, pt to take 80 units of lantus qHS. However, when administering the medication, pt stated he takes only 40 units of lantus at home; 40 units of Lantus given qHS. Will clarify prescribed lantus dose with Shell Mota, daughter, in AM, as well as request daughter bring in pt's pravastatin as it is nonformulary and pt is allergic to atorvastatin. Pt rested comfortably in bed through much of shift, compliant with cares.
[2020-09-04 05:02] VITALS: BP 149/78
[2020-09-04 05:51] LABS: BILIRUBIN,URINE NEG (NEG); CLARITY,URINE CLEAR; COLOR,URINE YELLOW; GLUCOSE,URINE 100 mg/dL (NEG)
[2020-09-04 05:52] LABS: BACTERIA,URINE 0 /HPF (0-FEW); NITRITE,URINE NEG (NEG); RBC,URINE 0 /HPF (0-2); SQUAMOUS EPITHELIAL CELL,UR OCC /LPF; UROBILINOGEN,URINE 0.2 mg/dL (0.2 mg/dL); WBC,URINE OCC /HPF (0-4)
[2020-09-04 07:01] LABS: CALCIUM 8.9 mg/dL (8.5-10.1); CREATININE 1.8 mg/dL (0.7-1.3); GFR 36.2; POTASSIUM 3.6 mmol/L (3.5-5.1)
[2020-09-04 07:05] LABS: HEMATOCRIT 38.4 % (39.0-53.0); HEMOGLOBIN 12.4 g/dL (13.0-17.5); RED BLOOD COUNT 4.13 x10^6/uL (4.30-5.70); RED CELL DISTRIBUTION WIDTH 14.9 % (11.5-14.5); WHITE BLOOD COUNT 8.5 x10^3/uL (4.0-11.0)
[2020-09-04] MEDS: FEBUXOSTAT 40 MG TABLET PO SCH (09:03)
[2020-09-04] MEDS: SUCRALFATE 1 GM TABLET. PO SCH ×4 (09:03→20:16)
[2020-09-04] MEDS: FUROSEMIDE 40 MG TABLET PO SCH ×2 (09:04→12:38)
[2020-09-04] MEDS: APIXABAN 2.5 MG TABLET PO SCH ×2 (09:05→20:17)
[2020-09-04] MEDS: TERAZOSIN 5 MG CAPSULE. PO SCH (09:05)
[2020-09-04] MEDS: INSULIN LISPRO 300 UNITS/3 ML VIAL. SQ SCH ×3 (09:06→16:53)
[2020-09-04] MEDS: PRAVASTATIN SODIUM 80 MG PO SCH (09:06)
[2020-09-04] MEDS: METOPROLOL SUCC 24HR ER 50 MG TAB.ER.24H. PO SCH ×2 (09:06→20:16)
--- NOTE | 2020-09-04 09:36 | HP ---
ADMIT DATE: 09/03/2020 ATTENDING PHYSICIAN: Dr. Houston Ellison CHIEF COMPLAINT: Weakness and inability to care for self. HISTORY OF PRESENT ILLNESS: The patient is an 85-year-old gentleman. 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 He lives with his single daughter who is not . 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 He was hospitalized at [facility] a week ago with community-acquired pneumonia, sent home with oral Keflex. He did well. He continues to be quite weak. He has been taking all of his other medications. The daughter reports he is unable to attend the patient needs fully, he is a large man. He is getting quite forgetful, appears he needs a higher level of care. He has fluctuating mentation, episodes of confusion and visual hallucinations. He observed that he is falling due to weakness, luckily no bones have been broken and this occurred at home. He is admitted then for further evaluation and continuation of IV antibiotics for pneumonia that is not completely resolved. There is still small infiltrate in the right periphery. PAST MEDICAL HISTORY: Significant for the recent admission a week ago with pneumonia. He has acute on chronic congestive heart failure, previous coronary artery bypass graft, COPD, altered mentation, generalized weakness, hypertension and type 2 diabetes mellitus. CURRENT MEDICATIONS: Reviewed. He was on albuterol, apixaban, budesonide, cholecalciferol, diclofenac gel, diltiazem, Zetia, ferrous sulfate, finasteride, fluticasone, folic acid, Lasix twice a day, hydralazine, insulin, ketoprofen, metolazone, metronidazole, montelukast, nitroglycerin, Protonix, potassium, pravastatin, prednisone, probenecid, Carafate, terazosin, thyroid, torsemide, and zolpidem. ALLERGIES: He has allergies to TETRACYCLINE, ATORVASTATIN, DIPHENHYDRAMINE, ERYTHROMYCIN AND ETHER, EXACT REACTIONS UNCLEAR. SOCIAL HISTORY: He was a smoker in the past and nondrinker. He is retired from the [employer]. His has since he had lived independently with his daughter. FAMILY HISTORY: Unobtainable due to the patient's confusion. REVIEW OF SYSTEMS: Significant for the generalized weakness from the chart. He has very poor memory issues. There is a strong anxiety component. All other systems reviewed and turned to be negative. PHYSICAL EXAMINATION: GENERAL: When I saw him, this is a pleasant gentleman. INITIAL VITAL SIGNS: Showed a blood pressure 148/78, pulse is 72 and regular, temperature 97.8 degrees Fahrenheit, oxygen saturation 93% on room air. HEENT: Head is without trauma. Pupils are reactive. Sclerae nonicteric. Oropharynx is clear. NECK: Supple, no bruits. LUNGS: Good breath sounds, minimal crackles at bases. CARDIOVASCULAR: Showed regular heart tones. No gallops. ABDOMEN: Soft. EXTREMITIES: Show trace edema. NEUROLOGIC: Pleasantly confused, some anxiety component. SKIN: Warm and dry. IMAGING STUDIES: Chest x-ray still showed a small pleural effusion, minimal infiltrate, otherwise clear. LABORATORY DATA: Hemoglobin is 13.3, white count 8400. Chemistry panel: Sodium 146, potassium 3.6 mEq, nonfasting blood sugar 247. Cardiac enzymes negative for coronary ischemia. ASSESSMENT: 1. An 85-year-old gentleman with profound weakness and inability to care for self. 2. Underlying dementia, which is evident. 3. Recent community-acquired pneumonia, almost completely resolved. 4. Type 2 diabetes. 5. Frequent falls. 6. Generalized debilitation. 7. Essential hypertension. PLAN: 1. Admit to the inpatient unit. 2. Continue IV antibiotics as ordered. 3. I reviewed the chest x-ray. Pneumonia is not a big clinical issue. 4. Simplification of meds. 5. Continue diuretics. 6. I will discuss with the daughter, her expectations. home manager will help with discharge planning whether he needs a higher level of care. He is a DNR per advanced directive. HOUSTON ELLISON MD DR: YOLIS/tania JOB#: [id number] / [id number] Flor Schwab MD
[2020-09-04] MEDS ORDERED: LORazepam 0.5 MG TABLET PO PRN (10:00)
[2020-09-04 10:58] VITALS: BP 153/64
[2020-09-04] MEDS: BUDESONIDE 0.5 MG/2 ML NEBU NEB SCH ×2 (12:16→20:00)
[2020-09-04] MEDS: ALBUTEROL SULFATE 2.5 MG/3 ML NEBU. NEB SCH ×2 (12:16→20:00)
[2020-09-04 12:47] VITALS: BP 163/85
--- NOTE | 2020-09-04 14:15 | EKG ---
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
[2020-09-04 15:08] VITALS: BP 152/70
[2020-09-04 18:56] VITALS: BP 112/67
[2020-09-04] MEDS: INSULIN GLARGINE SYRINGE. SQ SCH (20:17)
[2020-09-04 23:32] VITALS: BP 144/77
[2020-09-05 05:22] VITALS: BP 125/65
[2020-09-05] MEDS: INSULIN LISPRO 300 UNITS/3 ML VIAL. SQ SCH (07:55)
[2020-09-05] MEDS: PRAVASTATIN SODIUM 80 MG PO SCH (07:55)
[2020-09-05] MEDS: TERAZOSIN 5 MG CAPSULE. PO SCH (07:58)
[2020-09-05] MEDS: SUCRALFATE 1 GM TABLET. PO SCH (07:58)
[2020-09-05 07:59] VITALS: BP 125/65
[2020-09-05] MEDS: METOPROLOL SUCC 24HR ER 50 MG TAB.ER.24H. PO SCH (07:59)
[2020-09-05] MEDS: FUROSEMIDE 40 MG TABLET PO SCH (07:59)
[2020-09-05] MEDS: APIXABAN 2.5 MG TABLET PO SCH (07:59)
[2020-09-05] MEDS: ALBUTEROL SULFATE 2.5 MG/3 ML NEBU. NEB SCH (08:00)
[2020-09-05] MEDS: FEBUXOSTAT 40 MG TABLET PO SCH (08:00)
[2020-09-05] MEDS: BUDESONIDE 0.5 MG/2 ML NEBU NEB SCH (08:00)
--- NOTE | 2020-09-05 10:23 | NUR ---
Talked with VITOR Dockery to see why the nurses had been non administering patients treatment. She didn't know but said patient wanted them. I stated I would be up shortly to do. Within 5 minutes nurse called me back and stated "Dr Perkins said no, patient is being discharged" Treatments not given
--- NOTE | 2020-09-05 10:36 | NUR ---
NURSING NOTE DISCHARGE PT DISCHARGING HOME VIA AMBULATION PICKED UP BY DAUGHTER. DR ELLISON SPOKE WITH PT AND PT DAUGHTER EXTENSIVELY ABOUT HOME MEDICATIONS. PT INSTRUCTED TO FOLLOW UP WITH PCP IN 7-10 DAYS OR SOONER IF NEEDED. VITOR JAY.
--- NOTE | 2020-09-05 11:18 | DS ---
DATE OF DISCHARGE: 09/05/2020 ATTENDING PHYSICIAN: Dr. Ellison FINAL DISCHARGE DIAGNOSES: 1. Altered mentation, resolved. 2. Underlying dementia. 3. Recent hospitalization for community-acquired pneumonia, improved. 4. Type 2 diabetes. 5. 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 6. Frequent falls. 7. Generalized debilitation. 8. Essential hypertension. HISTORY AND PHYSICAL: The patient who goes by Jameel is a pleasant 85-year-old gentleman who is single and cared for by his daughter at home. They live together. He was recently hospitalized at [facility] just a week ago with community-acquired pneumonia, sent home. Since that time, he has been weak. He is on quite a bit of medications, diuretics. He was here for generalized weakness as well as confusion. PHYSICAL EXAMINATION: Please see my dictated note. PERTINENT LABORATORY AND X-RAY STUDIES: The chest x-ray shows clearing of infiltrates, small pleural effusions identified. No new infiltrates seen. Admission hemoglobin was 13.3 g/dL with a white count of 8400. Electrolytes, creatinine was 1.8 mg/dL, BUN 40, potassium 3.6 mEq, sodium 146 mEq. He is on replacement. Nonfasting blood sugar 240. Troponins were negative. BNP was 2800. COURSE IN THE HOSPITAL: The patient was admitted to the inpatient service. We continued his home meds. I simplified his regimen and he did fairly well. We will continue antibiotics for another 2 days to finish his course of treatment. By the third hospital day, the patient's sensorium is back to his baseline. I had a long discussion with his daughter. His blood pressure and vital signs are stable. He is afebrile. Lungs were clear and he was ambulating with minimal assistance. I offered subacute rehabilitation. The daughter declined saying that she wants to take him home and then manage him at home and I felt this is reasonable. Therefore, on the third hospital day, the patient was discharged home with no new medication and some simplification of his current regimen. He should continue his albuterol, Eliquis 2.5 mg b.i.d., Symbicort, Refresh eyedrops, cholecalciferol, diclofenac gel, diltiazem, Zetia, ferrous sulfate, finasteride, insulin regular and Lantus, ketoprofen eyedrops, metoprolol 100 mg daily, Singulair, Protonix, potassium supplementation 40 mEq daily, Pravachol, Hytrin at bedtime, [place] Thyroid, and Ambien p.r.n. For now, I took the liberty of simplifying his diuretics. We stopped his metolazone, Demadex, probenecid, Carafate, and hydralazine doses. Whether or not he was taking this is questionable as these may be old drugs. I discussed the case at length with the daughter. She will maintain daily weights and follow up with Dr. Kang at the scheduled time. The patient was then discharged from our hospital in stable condition with explicit instructions and followup care. HOUSTON ELLISON MD DR: YOLIS/tania JOB#: [id number] / [id number] Dr. Flor Schwab
[2020-09-21] MEDS ORDERED: ACET325T9 PO (10:10)
[2020-09-21] MEDS ORDERED: FLUT1BLS3 IH (10:10)
== END 2020-09-05 10:46 | disposition home health service (06) | DRG 71 ==
LOC: ER 16:36 → 1 SOUTH 17:48
PROVIDERS: ADMIT Hospitalist; ATTEND Hospitalist
DX: G93.41 Metabolic encephalopathy (principal); I13.0 Hypertensive heart and chronic kidney disease with heart failure and stage 1 through stage 4 chronic kidney disease, or unspecified chronic kidney disease; R53.81 Other malaise; R41.0 Disorientation, unspecified; E11.22 Type 2 diabetes mellitus with diabetic chronic kidney disease; E78.00 Pure hypercholesterolemia, unspecified; F03.90 Unspecified dementia, unspecified severity, without behavioral disturbance, psychotic disturbance, mood disturbance, and anxiety; I25.10 Atherosclerotic heart disease of native coronary artery without angina pectoris; I48.91 Unspecified atrial fibrillation; I50.9 Heart failure, unspecified; N18.30 Chronic kidney disease, stage 3 unspecified; R29.6 Repeated falls; Z66 Do not resuscitate; Z79.01 Long term (current) use of anticoagulants; Z79.899 Other long term (current) drug therapy; Z87.01 Personal history of pneumonia (recurrent); Z87.891 Personal history of nicotine dependence; Z90.49 Acquired absence of other specified parts of digestive tract; Z95.1 Presence of aortocoronary bypass graft; K21.9 Gastro-esophageal reflux disease without esophagitis; Z88.8 Allergy status to other drugs, medicaments and biological substances
CPT/HCPCS: 36415; 71045; 80048; 81001; 82947; 83605; 84484; 85025; 85027; 87040; 93005; 99285; J0456; J0696; J1815; J7050

== ENCOUNTER → 2020-09-21 | Day surgery (SDC) | payer MEDICARE, OTHER ==
[~2020-09-21] MED LIST changes: +ACET325T9 PO; +BUDE10.2 IH; +FLUT1BLS3 IH; +METO50TA29 PO
[2020-09-21 09:58] VITALS: BP 148/73
== END | disposition home or self-care (01) ==
LOC: SURG 09:47
PROVIDERS: ATTEND Anesthesiology
DX: M54.16 Radiculopathy, lumbar region (principal); E03.9 Hypothyroidism, unspecified; E11.40 Type 2 diabetes mellitus with diabetic neuropathy, unspecified; I13.0 Hypertensive heart and chronic kidney disease with heart failure and stage 1 through stage 4 chronic kidney disease, or unspecified chronic kidney disease; E11.22 Type 2 diabetes mellitus with diabetic chronic kidney disease; N18.9 Chronic kidney disease, unspecified; I50.32 Chronic diastolic (congestive) heart failure; N18.30 Chronic kidney disease, stage 3 unspecified; J44.9 Chronic obstructive pulmonary disease, unspecified; I25.10 Atherosclerotic heart disease of native coronary artery without angina pectoris; K21.9 Gastro-esophageal reflux disease without esophagitis; I48.20 Chronic atrial fibrillation, unspecified; E78.2 Mixed hyperlipidemia; Z79.01 Long term (current) use of anticoagulants; E04.1 Nontoxic single thyroid nodule; G47.33 Obstructive sleep apnea (adult) (pediatric); E66.9 Obesity, unspecified; M19.90 Unspecified osteoarthritis, unspecified site; Z98.890 Other specified postprocedural states; Z90.49 Acquired absence of other specified parts of digestive tract; Z95.1 Presence of aortocoronary bypass graft; Z98.41 Cataract extraction status, right eye; Z98.42 Cataract extraction status, left eye; Z82.49 Family history of ischemic heart disease and other diseases of the circulatory system; Z80.8 Family history of malignant neoplasm of other organs or systems; Z83.3 Family history of diabetes mellitus; Z80.0 Family history of malignant neoplasm of digestive organs
CPT/HCPCS: 99214; G0463

== ENCOUNTER 2020-09-23 16:22 | Emergency (ER) | payer MEDICARE, OTHER ==
[~2020-09-23] VITALS: Ht 177.8 cm; Wt 112.2 kg
--- NOTE | 2020-09-23 16:59 | PHYS DOC ---
Past History Past Medical History: A-Fib, CAD, CHF, COPD, Diabetes, GERD, High Cholesterol, Heart Disease, Hypertension, Pneumonia, Other Past Surgical History: Appendectomy, Cholecystectomy, Coronary Bypass Surgery, Other Smoking: Quit Greater Than 1 Year Alcohol Use: None Drug Use: None General Adult EDM: Chief Complaint: FLANK PAIN HPI: HPI: Patient is a 85-year-old male who presents with left-sided abdominal pain that radiates to his left flank and urinary frequency. patient states "I have lost 7 pounds in the last 5 days". Patient states he was just treated for pneumonia and just finished Zithromax and prednisone. Denies fevers, nausea/vomiting/diarrhea. Patient is denying need anything for pain at this time. Patient has a history of diabetes, A. fib, COPD, hypertension. Review of Systems: Review of Systems: Constitutional: Denies fever or chills Eyes: Denies change in visual acuity HENT: Denies nasal congestion or sore throat Respiratory: Denies cough or shortness of breath Cardiovascular: Denies chest pain or edema GI: Reports left-sided abdominal pain, denies nausea/vomiting/diarrhea : Denies dysuria, reports frequency Musculoskeletal: Denies back pain or joint pain Integument: Denies rash Neurologic: Denies headache, focal weakness or sensory changes Endocrine: Denies polyuria or polydipsia Lymphatic: Denies swollen glands Psychiatric: Denies depression or anxiety Allergies: Allergies: Allergies Coded Allergies Type Severity Reaction Last Updated Verified Tetracyclines Allergy Intermediate 09/10/15 Yes atorvastatin Allergy Intermediate 09/10/15 Yes diphenhydramine Allergy Intermediate 09/10/15 Yes erythromycin base Allergy Intermediate 09/10/15 Yes ether Allergy Intermediate 09/10/15 Yes Physical Exam: PE: Constitutional: Well developed, well nourished, no acute distress, non-toxic appearance. [] HENT: Normocephalic, atraumatic, bilateral external ears normal, oropharynx moist, no oral exudates, nose normal. [] Eyes: PERRLA, EOMI, conjunctiva normal, no discharge. [] Neck: Normal range of motion, no tenderness, supple, no stridor. [] Cardiovascular:Heart rate regular rhythm, no murmur [] Lungs & Thorax: Bilateral breath sounds clear to auscultation [] Abdomen: Bowel sounds normal, soft, left-sided abdominal tenderness Skin: Warm, dry, no erythema, no rash. [] Back: No tenderness, left-sided CVA tenderness. [] Extremities: No tenderness, no cyanosis, no clubbing, ROM intact, no edema. [] Neurologic: Alert and oriented X 3, normal motor function, normal sensory function, no focal deficits noted. [] Psychologic: Affect normal, judgement normal, mood normal. [] Current Patient Data: Vital Signs: Vital Signs Date Time Temp Pulse Resp B/P (MAP) Pulse Ox O2 Delivery O2 Flow Rate FiO2 09/23/20 16:32 97.8 78 16 134/68 (90) 96 Room Air EKG: EKG: [] Radiology/Procedures: Radiology/Procedures: []XR CHEST 1V Clinical History: Reason: ABD PAIN / Spl. Instructions: / History: Technique: AP view of the chest was obtained at 09/23/2020 6:25 PM. Comparison: September 03, 2020. Findings: The cardiomediastinal silhouette is normal. The pulmonary vasculature is normal. There is linear opacities in lung bases. Median sternotomy wires again seen. The pleural margins are clear. Impression: Linear opacities in the lung bases likely discoid atelectasis. Electronically signed by: Mal Smart III, MD (09/23/2020 7:22 PM) [facility] Exam: CT of abdomen and pelvis without contrast INDICATION: Abdominal pain TECHNIQUE: Sequential axial images through the abdomen and pelvis obtained without IV contrast. Sagittal and coronal reformatted images were reconstructed from the axial data and reviewed. Comparisons: 01/02/2016 FINDINGS: Heart size is normal. Moderate coronary calcifications. Visualized lung bases are clear. No pleural effusion. Evaluation solid organs is limited secondary to noncontrast technique. Liver, spleen, and adrenals are unremarkable. Gallbladder surgically absent. Mild haziness in the mesenteric fat surrounding the pancreas. No perinephric inflammation or hydronephrosis. No renal or ureteral calculi are identified. Bladder is partially distended and appears thin-walled. Prostate is not enlarged. Few scattered diverticula are noted in the sigmoid colon without evidence of acute diverticulitis. Remainder of the large and small bowel are unremarkable. Appendix is not identified. Abdominal aorta has a normal course and caliber. No enlarged intra-abdominal lymph nodes are identified. No suspicious osseous lesions or acute fractures. IMPRESSION: 1. Mild haziness surrounding the pancreas, may relate to mild pancreatitis. Correlate with appropriate laboratory values. 2. Diverticulosis without evidence of acute diverticulitis. Exposure: One or more of the following in the visualized dose reduction techniques were utilized for this examination: 1. Automated exposure control 2. Adjustment of the MA and/or KV according to patient size 3. Use of iterative of reconstructive technique Electronically signed by: Brando Tenorio MD (09/23/2020 7:07 PM) [facility] Heart Score: C/O Chest Pain: No Risk Factors: Risk Factors: DM, Current or recent (<one month) smoker, HTN, HLP, family histo ry of CAD, obesity. Risk Scores: Score 0 - 3: 2.5% MACE over next 6 weeks - Discharge Home Score 4 - 6: 20.3% MACE over next 6 weeks - Admit for Clinical Observation Score 7 - 10: 72.7% MACE over next 6 weeks - Early Invasive Strategies Course & Med Decision Making: Course & Med Decision Making [] Patient is reporting left-sided abdominal pain that radiates to left flank. Patient is also reporting frequency. Denies dysuria. CT of abdomen pelvis shows Mild haziness surrounding the pancreas, may relate to mild pancreatitis. Lipase is 88. Patient's only symptoms are left-sided abdominal pain and flank pain. BUN/creatinine are elevated but patient has past history of elevated BUN/creatinine. WBC is 15.8. Patient just stopped azithromycin and prednisone for a pneumonia. Patient needs to follow-up with PCP on Saturday for further evaluation. Patient can take ibuprofen at home for pain or discomfort. Patient is hemodynamically stable. Patient is appreciative and okay with this discharge plan. Dragon Disclaimer: Dragon Disclaimer: This electronic medical record was generated, in whole or in part, using a voice recognition dictation system. Departure Departure: Impression: Primary Impression: Flank pain Disposition: 01 DC HOME SELF CARE/HOMELESS Condition: STABLE Referrals: FERN ABARCA (PCP) Patient Instructions: Flank Pain, [id number] Additional Instructions: You are seen in the emergency room for abdominal pain and flank pain. Your BUN and creatinine were elevated but it appears that they have been elevated in the past. Your CT of your abdomen was negative for any acute abnormalities. Please follow-up with your PCP on Saturday for further management. Please return to emergency room with worsening symptoms or concerns. EMERGENCY DEPARTMENT GENERAL DISCHARGE INSTRUCTIONS Thank you for coming to [facility] (ED) today and trusting us with you care. We trust that you had a positivie experience in our Emergency Department. If you wish to speak to the department management, you may call the director at [phone]. YOUR FOLLOW UP INSTRUCTIONS ARE FOLLOWS: 1. Do you have a private Doctor? If you do not have a private doctor, please ask for a resource list of physicians or clinics that may be able to assist you with follow up care. 2. The Emergency Physician has interpreted your x-rays. The X-Ray specialist will also review them. If there is a change in the findings, you will be notified in 48 hours when at all possible. 3. A lab test or culture has been done, your results will be reviewed and you will be notified if you need a change in treatment. ADDITIONAL INSTRUCTIONS AND INFORMATION: 1. Your care today has been supervised by a physician who is specially trained in emergency care. Many problems require more than one evaluation for a complete diagnosis and treatment. We recommend that you schedule your follow up appointment as recommended to ensure complete treatment of you illness or injury. If you are unable to obtain follow up care and continue to have a problem, or if your condition worsens, we recommend that you return to the ED. 2. We are not able to safely determine your condition over the phone nor are we able to give sound medical advice over the phone. For these safety reasons, if you call for medical advice we will ask you to come to the ED for further evaluation. 3. If you have any questions regarding these discharge instructions please call the ED at [phone]. SAFETY INFORMATION: In the interest of safety, wellness, and injury prevention; we encourage you to wear your sealbelt, if you smoke; quite smoking, and we encourage family to use a protective helmet for bicycling and other sporting events that present an increased risk for head injury. IF YOUR SYMPTOMS WORSEN OR NEW SYMPTOMS DEVELOP, OR YOU HAVE CONCERNS ABOUT YOUR CONDITION; OR IF YOUR CONDITION WORSENS WHILE YOU ARE WAITING FOR YOUR FOLLOW UP APPOINTMENT; EITHER CONTACT YOUR PRIMARY CARE DOCTOR, THE PHYSICIAN WHOSE NAME AND NUMBER YOU WERE GIVEN, OR RETURN TO THE ED IMMEDIATELY. MONTEZ GOETZ [employer] Sep 23, 2020 16:59
[2020-09-23 18:00] VITALS: BP 155/68
[2020-09-23 18:36] LABS: CALCIUM 8.6 mg/dL (8.5-10.1); GFR 32.1; POTASSIUM 4.2 mmol/L (3.5-5.1)
[2020-09-23 18:39] LABS: BASO % 0 % (0-3); EOS # 0.3 x10^3/uL (0.0-0.7); EOS % 2 % (0-3); HEMATOCRIT 43.1 % (39.0-53.0); HEMOGLOBIN 13.8 g/dL (13.0-17.5); LYMPH # 1.6 x10^3/uL (1.0-4.8); LYMPH % 10 % (24-48); MEAN CORPUSCULAR HEMOGLOBIN 30 pg (25-35); MEAN CORPUSCULAR HGB CONC 32 g/dL (31-37); MEAN CORPUSCULAR VOLUME 93 fL (79-100); MONO # 1.1 x10^3/uL (0.0-1.1); MONO % 7 % (0-9); NEUT # 12.7 x10^3uL (1.8-7.7); NEUT % 81 % (31-73); PLATELET COUNT 217 x10^3/uL (140-400); RED BLOOD COUNT 4.65 x10^6/uL (4.30-5.70); RED CELL DISTRIBUTION WIDTH 15.6 % (11.5-14.5); WHITE BLOOD COUNT 15.8 x10^3/uL (4.0-11.0)
[2020-09-23 18:42] LABS: ALBUMIN 3.2 g/dL (3.4-5.0); ALBUMIN/GLOBULIN RATIO 1.3 (1.0-1.7); TOTAL BILIRUBIN 0.4 mg/dL (0.2-1.0); TOTAL PROTEIN 5.6 g/dL (6.4-8.2)
--- NOTE | 2020-09-23 19:10 | RAD ---
Exam: CT of abdomen and pelvis without contrast INDICATION: Abdominal pain TECHNIQUE: Sequential axial images through the abdomen and pelvis obtained without IV contrast. Sagit joanna and coronal reformatted images were reconstructed from the axial data and reviewed. Comparisons: 01/02/2016 FINDINGS: Heart size is normal. Moderate coronary calcifications. Visualized lung bases are clear. No pleural e ffusion. Evaluation solid organs is limited secondary to noncontrast technique. Liver, spleen, and adrenals are unremarkable. Gallbladder surgically absent. Mild haziness in the mesenteric fat surrounding the pancreas. No perinephric inflammation or hydronephrosis. No renal or ureteral calculi are identified. Bladder is partially distended and appears thin-walled. Prostate is not enlarged. Few scattered diverticula are noted in the sigmoid colon without evidence of acute diverticulitis. Re mainder of the large and small bowel are unremarkable. Appendix is not identified. Abdominal aorta has a normal course and caliber. No enlarged intra-abdominal lymph nodes are identified. No suspicious osseous lesions or acute fractures. IMPRESSION: 1. Mild haziness surrounding the pancreas, may relate to mild pancreatitis. Correlate with appropria te laboratory values. 2. Diverticulosis without evidence of acute diverticulitis. Exposure: One or more of the following in the visualized dose reduction techniques were utilized for this examination: 1. Automated exposure control 2. Adjustment of the MA and/or KV according to patient size 3. Use of iterative of reconstructive technique Electronically signed by: Brando Tenorio MD (09/23/2020 7:07 PM) [facility]
[2020-09-23 19:23] LABS: BILIRUBIN,URINE NEG (NEG); CLARITY,URINE CLEAR; COLOR,URINE YELLOW; GLUCOSE,URINE NEG (NEG); NITRITE,URINE NEG (NEG); RBC,URINE OCC /HPF (0-2); UROBILINOGEN,URINE 0.2 mg/dL (0.2 mg/dL); WBC,URINE OCC /HPF (0-4)
[2020-09-23 19:24] LABS: BACTERIA,URINE 0 /HPF (0-FEW); SQUAMOUS EPITHELIAL CELL,UR FEW /LPF
--- NOTE | 2020-09-23 19:24 | RAD ---
XR CHEST 1V Clinical History: Reason: ABD PAIN / Spl. Instructions: / History: Technique: AP view of the chest was obtained at 09/23/2020 6:25 PM. Comparison: September 03, 2020. Findings: The cardiomediastinal silhouette is normal. The pulmonary vasculature is normal. There is linear opac ities in lung bases. Median sternotomy wires again seen. The pleural margins are clear. Impression: Linear opacities in the lung bases likely discoid atelectasis. Electronically signed by: Mal Smart III, MD (09/23/2020 7:22 PM) [facility]
--- NOTE | 2020-09-23 21:57 | EKG ---
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
[2020-09-23 22:12] LABS: % ATYL 5 % (0-0); % BANDS 2 % (0-9); % EOS 1 % (0-5); % LYMPHS 5 % (24-48); % MONOS 5 % (0-10); % SEGS 82 % (35-66)
[2020-09-23 22:13] LABS: PLT ESTIMATE ADEQUATE (ADEQUATE)
[2020-09-23 22:14] LABS: BURR CELLS FEW; OVALOCYTES FEW; POLYCHROMASIA PRESENT
== END 2020-09-23 20:05 | disposition home or self-care (01) ==
LOC: ER 16:22
DX: R10.9 Unspecified abdominal pain (principal); R35.0 Frequency of micturition; I48.91 Unspecified atrial fibrillation; I25.810 Atherosclerosis of coronary artery bypass graft(s) without angina pectoris; I11.0 Hypertensive heart disease with heart failure; I50.9 Heart failure, unspecified; J44.9 Chronic obstructive pulmonary disease, unspecified; E11.9 Type 2 diabetes mellitus without complications; K21.9 Gastro-esophageal reflux disease without esophagitis; E78.00 Pure hypercholesterolemia, unspecified; Z87.891 Personal history of nicotine dependence; Z90.89 Acquired absence of other organs; Z90.49 Acquired absence of other specified parts of digestive tract; Z88.1 Allergy status to other antibiotic agents; Z88.8 Allergy status to other drugs, medicaments and biological substances
CPT/HCPCS: 36415; 71045; 74176; 80053; 81001; 83690; 84484; 85007; 85025; 93005; 99285

== ENCOUNTER → 2020-09-23 | Outpatient (CLI) | payer MEDICARE, OTHER ==
[2020-09-21 09:58] VITALS: BP 148/73
--- NOTE | 2020-09-23 17:25 | RAD ---
CT scan of the neck without contrast 09/23/2020 CLINICAL HISTORY: Dysphagia. Hoarseness. TECHNIQUE: Unenhanced, contiguous, 3 mm axial sections were obtained through the neck. One or more of the following individualized dose reduction techniques were utilized for this study: 1. Automated exposure control. 2. Adjustment of the mA and/or kV according to patient size. 3. Use of iterative reconstruction technique. FINDINGS: The mucosal structures of the nasal pharynx, oral pharynx, hypopharynx and larynx are withi n normal limits. The parotid glands are mildly enlarged and demonstrate fatty replacement. No focal a bnormality is seen. The submandibular glands and thyroid gland are within normal limits. The orbits a re within normal limits. The paranasal sinuses are clear. The patient is edentulous. The mastoid air cells and middle ear cavities are clear. Moderate to severe atherosclerotic plaque formation is seen involving both carotid bifurcations and proximal internal carotid arteries bilaterally. No cervical l ymphadenopathy is seen. No abnormal soft tissue mass or fluid collection is noted. The apices of both lungs are clear. The patient is post CABG procedure. Degenerative changes are seen involving the unc overtebral and facet joints throughout the cervical disc spaces. IMPRESSION: No acute abnormality is seen. Electronically signed by: Navdeep Hernández MD (09/23/2020 5:23 PM) [id number]
== END ==
LOC: CT 10:56
PROVIDERS: ATTEND Specialist
DX: R06.02 Shortness of breath (principal); K11.1 Hypertrophy of salivary gland; I65.23 Occlusion and stenosis of bilateral carotid arteries; M47.812 Spondylosis without myelopathy or radiculopathy, cervical region; Z95.1 Presence of aortocoronary bypass graft
CPT/HCPCS: 70490

== ENCOUNTER 2020-10-23 18:24 | Emergency (ER) | payer MEDICARE, OTHER ==
[~2020-10-23] VITALS: Ht 177.8 cm; Wt 112.2 kg
--- NOTE | 2020-10-23 18:45 | PHYS DOC ---
Past History Past Medical History: A-Fib, CAD, CHF, COPD, Diabetes, GERD, High Cholesterol, Heart Disease, Hypertension, Pneumonia, Other Past Surgical History: Appendectomy, Cholecystectomy, Coronary Bypass Surgery, Other Smoking: Quit Greater Than 1 Year Alcohol Use: None Drug Use: None General Adult EDM: Chief Complaint: CHOKING HPI: HPI: 85-year-old male presents with episode of choking. The patient was eating a sandwich and started to have choking. He was unable to get what ever was in his throat. The patient has been having persistent coughing so he came to the emergency room. He believes that it may have come dislodged while he was in the waiting room. He still has an intermittent cough, but feels like the sensation is changed. He denies any shortness of breath or chest pain. He has no other complaints at this time. Review of Systems: Review of Systems: Constitutional: Denies fever or chills Eyes: Denies change in visual acuity HENT: Denies nasal congestion or sore throat Respiratory: Denies cough or shortness of breath Cardiovascular: Denies chest pain or edema GI: Denies abdominal pain, nausea, vomiting, bloody stools or diarrhea : Denies dysuria Musculoskeletal: Denies back pain or joint pain Integument: Denies rash Neurologic: Denies headache, focal weakness or sensory changes Endocrine: Denies polyuria or polydipsia Lymphatic: Denies swollen glands Psychiatric: Denies depression or anxiety Allergies: Allergies: Allergies Coded Allergies Type Severity Reaction Last Updated Verified Tetracyclines Allergy Intermediate 09/10/15 Yes atorvastatin Allergy Intermediate 09/10/15 Yes diphenhydramine Allergy Intermediate 09/10/15 Yes erythromycin base Allergy Intermediate 09/10/15 Yes ether Allergy Intermediate 09/10/15 Yes Physical Exam: PE: Constitutional: Well developed, well nourished, no acute distress, non-toxic appearance. [] HENT: Normocephalic, atraumatic, bilateral external ears normal, oropharynx moist, no oral exudates, nose normal. [] Eyes: PERRLA, EOMI, conjunctiva normal, no discharge. [] Neck: Normal range of motion, no tenderness, supple, no stridor. [] Cardiovascular:Heart rate regular rhythm, no murmur [] Lungs & Thorax: Intermittent coughing. Bilateral breath sounds clear to auscultation [] Abdomen: Bowel sounds normal, soft, no tenderness, no masses, no pulsatile masses. [] Skin: Warm, dry, no erythema, no rash. [] Back: No tenderness, no CVA tenderness. [] Extremities: No tenderness, no cyanosis, no clubbing, ROM intact, no edema. [] Neurologic: Alert and oriented X 3, normal motor function, normal sensory function, no focal deficits noted. [] Psychologic: Affect normal, judgement normal, mood normal. [] EKG: EKG: [] Radiology/Procedures: Radiology/Procedures: [] Impressions: CT neck without contrast dated 10/23/2020. No comparison available. CLINICAL INDICATION: Choking episode. Concern for food bolus. TECHNIQUE: Contiguous axial imaging of the neck performed without the administration of IV or oral contrast. One or more of the following individualized dose reduction techniques were utilized for this examination: 1. Automated exposure control 2. Adjustment of the mA and/or kV according to patient size 3. Use of iterative reconstruction technique FINDINGS: The oropharynx and nasopharynx are clear. Epiglottis and aryepiglottic folds within normal limits. No subglottic airway narrowing. True and false cords unremarkable. No foreign body. There are dense atherosclerotic calcifications at the bilateral carotid bifurcation. No cervical chain lymphadenopathy. Thyroid gland unremarkable. Parotid glands and submandibular glands are symmetric. Limited images of lung apices are clear. No acute bony abnormality. Multilevel spondylosis. Imaged portions of the brain parenchyma unremarkable. IMPRESSION: 1. Short no acute abnormalities soft tissue neck. No evidence of retained food bolus. 2. Dense atherosclerotic calcifications of the bilateral carotids. Electronically signed by: Jim Suarez MD (10/23/2020 7:27 PM) [facility] DICTATED AND SIGNED BY: JIM SUAREZ MD DATE: 10/23/201921 CC: JOHN HUBBARD DO; FERN ABARCA ~MTH0 0 Exam: Chest one view INDICATION: Choking TECHNIQUE: Frontal view of the chest Comparisons: 09/23/2020 FINDINGS: Sternotomy wires are noted. The cardiomediastinal silhouette and pulmonary vessels are within normal limits. The lung and pleural spaces are clear. IMPRESSION: No acute cardiopulmonary process. Electronically signed by: Brando Ellsworth MD (10/23/2020 7:34 PM) [facility] DICTATED AND SIGNED BY: BRANDO ELLSWORTH MD DATE: 10/23/20 193 CC: JOHN HUBBARD DO; FERN ABARCA ~MTH0 0 Heart Score: C/O Chest Pain: N/A Risk Factors: Risk Factors: DM, Current or recent (<one month) smoker, HTN, HLP, family history of CAD, obesity. Risk Scores: Score 0 - 3: 2.5% MACE over next 6 weeks - Discharge Home Score 4 - 6: 20.3% MACE over next 6 weeks - Admit for Clinical Observation Score 7 - 10: 72.7% MACE over next 6 weeks - Early Invasive Strategies Course & Med Decision Making: Course & Med Decision Making Pertinent Labs and Imaging studies reviewed. (See chart for details) The patient requested that we not do labs less absolute necessary. We would not do any imaging prior to labs. His imaging is negative for acute findings. There are other chronic findings. See official read for more details. Looks like what ever is in the patient's chart has come out or been swallowed down appropriately. Labs are necessary. He is stable for discharge at this time. [] Dragon Disclaimer: Dragon Disclaimer: This electronic medical record was generated, in whole or in part, using a voice recognition dictation system. Departure Departure: Impression: Primary Impression: Choking due to foreign body Disposition: HOME / SELF CARE / HOMELESS Condition: STABLE Referrals: FERN ABARCA (PCP) Patient Instructions: Choking, Adult JOHN HUBBARD DO October 23, 2020 18:45
--- NOTE | 2020-10-23 19:29 | RAD ---
CT neck without contrast dated 10/23/2020. No comparison available. CLINICAL INDICATION: Choking episode. Concern for food bolus. TECHNIQUE: Contiguous axial imaging of the neck performed without the administration of IV or oral contrast. One or more of the following individualized dose reduction techniques were utilized for this examinat ion: 1. Automated exposure control 2. Adjustment of the mA and/or kV according to patient size 3. Use of iterative reconstruction technique FINDINGS: The oropharynx and nasopharynx are clear. Epiglottis and aryepiglottic folds within normal limits. No subglottic airway narrowing. True and false cords unremarkable. No foreign body. There are dense atherosclerotic calcifications at the bilateral carotid bifurcation. No cervical karyn n lymphadenopathy. Thyroid gland unremarkable. Parotid glands and submandibular glands are symmetric. Limited images of lung apices are clear. No acute bony abnormality. Multilevel spondylosis. Imaged po rtions of the brain parenchyma unremarkable. IMPRESSION: 1. Short no acute abnormalities soft tissue neck. No evidence of retained food bolus. 2. Dense atherosclerotic calcifications of the bilateral carotids. Electronically signed by: Jim Suarez MD (10/23/2020 7:27 PM) [facility]
--- NOTE | 2020-10-23 19:37 | RAD ---
Exam: Chest one view INDICATION: Choking TECHNIQUE: Frontal view of the chest Comparisons: 09/23/2020 FINDINGS: Sternotomy wires are noted. The cardiomediastinal silhouette and pulmonary vessels are within normal limits. The lung and pleural spaces are clear. IMPRESSION: No acute cardiopulmonary process. Electronically signed by: Brando Tenorio MD (10/23/2020 7:34 PM) [facility]
[2020-10-23 20:05] VITALS: BP 164/102
--- NOTE | 2020-10-24 00:04 | EKG ---
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
== END 2020-10-23 20:05 | disposition home or self-care (01) ==
LOC: ER 18:24
DX: T17.928A Food in respiratory tract, part unspecified causing other injury, initial encounter (principal); I48.91 Unspecified atrial fibrillation; I11.0 Hypertensive heart disease with heart failure; I50.9 Heart failure, unspecified; J44.9 Chronic obstructive pulmonary disease, unspecified; E11.9 Type 2 diabetes mellitus without complications; K21.9 Gastro-esophageal reflux disease without esophagitis; E78.00 Pure hypercholesterolemia, unspecified; I25.810 Atherosclerosis of coronary artery bypass graft(s) without angina pectoris; Z87.891 Personal history of nicotine dependence; Z88.1 Allergy status to other antibiotic agents; Z88.8 Allergy status to other drugs, medicaments and biological substances; X58.XXXA Exposure to other specified factors, initial encounter; Y93.89 Activity, other specified; Y92.89 Other specified places as the place of occurrence of the external cause; Y99.8 Other external cause status
CPT/HCPCS: 70490; 71045; 93005; 99284

== ENCOUNTER → 2020-11-02 | Day surgery (SDC) | payer MEDICARE, OTHER ==
[~2020-11-02] MED LIST changes: +BUPIVACAINE MPF 0.25% 30 ML VIAL. ONE; +methylPREDNISolone ACETATE 80 MG/ML VIAL. ONE
[2020-11-02 13:08] VITALS: BP 158/68
== END | disposition home or self-care (01) ==
LOC: SURG 12:14
PROVIDERS: ATTEND Anesthesiology
DX: M79.18 Myalgia, other site (principal); M48.061 Spinal stenosis, lumbar region without neurogenic claudication; M47.816 Spondylosis without myelopathy or radiculopathy, lumbar region; I13.0 Hypertensive heart and chronic kidney disease with heart failure and stage 1 through stage 4 chronic kidney disease, or unspecified chronic kidney disease; E11.22 Type 2 diabetes mellitus with diabetic chronic kidney disease; N18.30 Chronic kidney disease, stage 3 unspecified; I50.32 Chronic diastolic (congestive) heart failure; E03.9 Hypothyroidism, unspecified; I48.20 Chronic atrial fibrillation, unspecified; J44.9 Chronic obstructive pulmonary disease, unspecified; E11.40 Type 2 diabetes mellitus with diabetic neuropathy, unspecified; E78.2 Mixed hyperlipidemia; G47.33 Obstructive sleep apnea (adult) (pediatric); M19.90 Unspecified osteoarthritis, unspecified site; E04.1 Nontoxic single thyroid nodule; E66.9 Obesity, unspecified; K21.9 Gastro-esophageal reflux disease without esophagitis; I25.118 Atherosclerotic heart disease of native coronary artery with other forms of angina pectoris; E11.51 Type 2 diabetes mellitus with diabetic peripheral angiopathy without gangrene; E11.65 Type 2 diabetes mellitus with hyperglycemia; Z80.0 Family history of malignant neoplasm of digestive organs; Z79.01 Long term (current) use of anticoagulants; Z95.1 Presence of aortocoronary bypass graft; Z90.49 Acquired absence of other specified parts of digestive tract; Z98.890 Other specified postprocedural states; Z98.41 Cataract extraction status, right eye; Z98.42 Cataract extraction status, left eye; Z88.8 Allergy status to other drugs, medicaments and biological substances; Z79.4 Long term (current) use of insulin; Z83.3 Family history of diabetes mellitus; Z82.49 Family history of ischemic heart disease and other diseases of the circulatory system
CPT/HCPCS: 20553; J1040; J3490

== ENCOUNTER → 2021-07-21 | Outpatient (CLI) | payer MEDICARE, OTHER ==
[2020-11-02 13:08] VITALS: BP 158/68
[~2021-07-21] MED LIST changes: -BUPIVACAINE MPF 0.25% 30 ML VIAL. ONE; -methylPREDNISolone ACETATE 80 MG/ML VIAL. ONE
--- NOTE | 2021-07-21 16:53 | RAD ---
INDICATION: Reason: LT THIGH PAIN / Spl. Instructions: PROX AND LAT THIGH / History: COMPARISON: None. FINDINGS: Focused ultrasound images are obtained of the left side of the soft tissues. Subcutaneous fat and musculature is seen as well as the cortex of the bone without a drainable fluid collection or sonographically evident mass. IMPRESSION: * No fluid collection or sonographically visible mass is seen on focused ultrasound. Electronically signed by: Fredy Winters MD (07/21/2021 4:51 PM) [id number]
== END ==
LOC: US 15:46
PROVIDERS: ATTEND Family Medicine
DX: M79.652 Pain in left thigh (principal)
CPT/HCPCS: 76881